=== PATIENT | female | born 1960 | race Caucasian/White ===

== ENCOUNTER 2020-11-29 07:12 | Emergency (ER) | payer OTHER ==
[2020-11-29] MEDS ORDERED: MORPHINE SULFATE 2 MG INJ ONE (07:24)
[2020-11-29] MEDS ORDERED: MORPHINE SULFATE 2 MG INJ IV ONE (07:24)
[2020-11-29] MEDS ORDERED: Zofran 4 MG/2 ML VIAL IV ONE ×2 (07:24→11:46)
[2020-11-29] MEDS ORDERED: Zofran 4 MG/2 ML VIAL ONE ×2 (07:24→11:49)
[2020-11-29 07:32] LABS: BASOPHIL % 0.3 % (0.0-0.4); Basophil (Absolute #) 0.04 (0-0.4); Eosinophil % 1.4 % (0.00-5.0); Eosinophil (Absolute #) 0.19 (0-0.5); Hematocrit 38.6 % (35-47); Lymphocyte (Absolute #) 3.71 (1.0-4.6); Mean Cell Volume 80.8 fl (78-100); Mean Corpuscular Hemoglobin 25.1 pg (26-32); Mean Corpuscular Hgb Concent. 31.1 g/dl (32-36); Mean Platelet Volume 10.3 fl (7.5-11.0); Monocyte (Absolute #) 0.78 (0.0-1.3); Monocytes % 5.7 % (0.0-12.0); Neutrophil % 65.6 % (36.0-66.0); Platelet Count 474 K/mm3 (150-450); Red Blood Count 4.78 M/mm3 (4.1-5.4); Red Cell Distribution Width 16.9 % (11.5-14.0); White Blood Count 13.7 K/mm3 (4.0-10.5)
--- NOTE | 2020-11-29 07:50 | ERPHSYRPT ---
- History of Present Illness Time Seen by Provider: 11/29/20 07:20 Historian: patient Exam Limitations: no limitations Patient Subjective Stated Complaint: pt here for multi cos, she is yelling at staff thrashing and moaning out. she states she was in [facility] for [facility] ncreatitis, and had a bee sting yesterday, and states shes sob, Triage Nursing Assessment: pt alert, resp labored, she is hyperventilating, skin w.d.p, abd soft, co pain to center of abd,no edema, unable to exam pt fully do to her tharshing in bed Physician History: Patient is a 60-year-old female presents for emergency department with complaints of epigastric pain. Patient states she was a patient at [facility] approximately 4 days ago for pancreatitis. Patient states she has been vomiting over the past 2 days. Patient has a sore throat. Patient states she feels as is difficult for her to breathe. Patient concern for possible hi phylaxis that she was stung by a bee yesterday. No chest pain. No diarrhea. No rash. No fever. No trauma. Symptoms are constant. Symptoms are moderate in intensity. No specific worsening improving factors. Patient voices no other complaints or concerns at this time. Timing/Duration: yesterday Activities at Onset: none Quality: aching Abdominal Pain Onset Location: epigastric Pain Radiation: no radiation Severity of Pain-Max: moderate Severity of Pain-Current: mild Modifying Factors: Improves With: nothing Associated Symptoms: nausea, shortness of breath, vomiting, No chest pain, No diarrhea, No fever/chills, No headache, No weakness Previous symptoms: same symptoms as today Allergies/Adverse Reactions: No Known Drug Allergies Allergy (Unverified 11/29/20 07:22) Hx Tetanus, Diphtheria Vaccination/Date Given: No Hx Influenza Vaccination/Date Given: No Hx Pneumococcal Vaccination/Date Given: No Immunizations Up to Date: Yes Travel Risk - International Travel Have you traveled outside of the country in past 3 weeks: No - Coronavirus Screening Are you exhibiting any of the following symptoms?: No Close contact with a COVID-19 positive Pt in past 14-21 Days: No - Vaccine Status Have you recieved a Covid-19 vaccination: Yes Core Measures Abstractor: Shogether - Vaccination Dates Date of 2cond Vaccination (if applicable): ? - Review of Systems Constitutional: No Symptoms, No Fever, No Chills Eyes: No Symptoms Ears, Nose, & Throat: No Symptoms Respiratory: No Symptoms, No Cough, No Dyspnea Cardiac: No Symptoms, No Chest Pain, No Edema, No Syncope Abdominal/Gastrointestinal: No Symptoms, No Abdominal Pain, No Nausea, No Vomiting, No Diarrhea Genitourinary Symptoms: No Symptoms, No Dysuria Musculoskeletal: No Symptoms, No Back Pain, No Neck Pain Skin: No Symptoms, No Rash Neurological: No Symptoms, No Dizziness, No Focal Weakness, No Sensory Changes Psychological: No Symptoms Endocrine: No Symptoms Hematologic/Lymphatic: No Symptoms Immunological/Allergic: No Symptoms All Other Systems: Reviewed and Negative - Past Medical History Pertinent Past Medical History: Yes Cardiac History: High Cholesterol, Hypertension Endocrine Medical History: Diabetes Type II Psycho-Social History: Anxiety, Depression - Past Surgical History Past Surgical History: Yes Musculoskeletal: Orthopedic Surgery Female Surgical History: Hysterectomy Other Surgical History: ankle ,knee - Social History Smoking Status: Former smoker Exposure to second hand smoke: No Drug Use: none Patient Lives Alone: No - Female History Hx Last Menstrual Period: post - Nursing Vital Signs Nursing Vital Signs: Initial Vital Signs Temperature 97.0 F 11/29/20 07:13 Pulse Rate 90 11/29/20 07:13 Respiratory Rate 18 11/29/20 07:13 Blood Pressure 181/96 11/29/20 07:13 O2 Sat by Pulse Oximetry 100 11/29/20 07:13 Pain Scale Pain Intensity 6 - Physical Exam General Appearance: mild distress, alert, other (Patient appears in mild distress. She is yelling at staff. ) Eye Exam: PERRL/EOMI, eyes nml inspection Ears, Nose, Throat Exam: normal ENT inspection, pharynx normal, moist mucous membranes Neck Exam: normal inspection, non-tender, supple, full range of motion Respiratory Exam: normal breath sounds, lungs clear, No respiratory distress Cardiovascular Exam: regular rate/rhythm, normal heart sounds Gastrointestinal/Abdomen Exam: soft, tenderness, other (Epigastric tenderness to palpation.), No mass Back Exam: normal inspection, normal range of motion, No CVA tenderness, No vertebral tenderness Extremity Exam: normal inspection, normal range of motion, pelvis stable Neurologic Exam: alert, oriented x 3, cooperative, normal mood/affect, sensation nml, No motor deficits Skin Exam: normal color, warm, dry Lymphatic Exam: No adenopathy SpO2 Interpretation: normal SpO2: 100 O2 Delivery: Room Air - Course Nursing assessment & vital signs reviewed: Yes EKG Interpreted by Me: RATE (87), Sinus Rhythm (PVC, poor quality EKG due to movement artifact.) - Radiology Exams Chest X-ray Interpretation: Interpreted by me (No acute cardiopulmonary processes seen. Some incidental findings are seen.) C-Spine X-ray Interpretation: Teleradiologist Report (See no evidence of significant airway compromise within the neck or prevertebral soft tissue swelling. There is equivocal evidence of minimal thickening of the epiglottis. However no other worrisome findings are seen. Degenerative changes within the cervical spine as discussed above.) - CT Exams Chest CT Interpretation: Tele-radiologist Report (No CT evidence of pulmonary embolus. Old healed granulomatous disease on the right. There is mild mosaic attenuation of the lung parenchyma at the lung bases. Consider small airway disease or bibasilar air trapping. No acute lung disease is seen. Mild focal atelectasis versus scarring at the posteri) Abdomen/Pelvis CT Interpretation: Tele-radiologist Report (No acute intra-abdominal or pelvic process. Moderate amount of fluid within the upper portion of the stomach and the ascending colon. No significant bowel wall thickening. Scattered colonic diverticulosis. No diverticulitis. Uterus is surgically absent. Radiopaque densities of unclear etiology at th) Ordered Tests: Active Orders 24 hr Category Date Time Status Nib Adjuster STAT Care 11/29/20 07:19 Active EKG-ER Only STAT Care 11/29/20 07:18 Active IV Insertion STAT Care 11/29/20 07:18 Active Pulse Oximetry (ED) STAT Care 11/29/20 07:18 Active ABDOMEN AND PELVIS W CONTRAST [CT] Stat Exams 11/29/20 08:18 Completed CHEST 1 VIEW (PORTABLE) Stat Exams 11/29/20 07:19 Completed CHEST WITH CONTRAST [CT] Stat Exams 11/29/20 08:18 Completed NECK SOFT TISSUE Stat Exams 11/29/20 07:24 Completed ARTERIAL BLOOD GASES Urgent Lab 11/29/20 07:18 Completed CBC W DIFF Stat Lab 11/29/20 07:27 Completed CMP Stat Lab 11/29/20 07:27 Completed D-DIMER QUANTITATIVE Stat Lab 11/29/20 07:27 Completed LIPASE Stat Lab 11/29/20 07:27 Completed Lactic Acid Stat Lab 11/29/20 07:18 Completed Lactic Acid Stat Lab 11/29/20 09:53 Completed NT PRO BNP Stat Lab 11/29/20 07:27 Completed TROPONIN Q3H Lab 11/29/20 07:27 Completed TROPONIN Q3H Lab 11/29/20 10:18 Completed TROPONIN Q3H Lab 11/29/20 13:30 Ordered TROPONIN Q3H Lab 11/29/20 16:30 Ordered TROPONIN Q3H Lab 11/29/20 19:30 Ordered UA W/RFX UR CULTURE Stat Lab 11/29/20 07:19 Ordered Medication Summary Generic Name Dose Route Start Last Admin Trade Name Freq PRN Reason Stop Dose Admin Potassium Chloride 20 meq in 100 mls @ 50 mls/hr 11/29/20 08:30 11/29/20 12:04 Potassium Chloride 20 Meq In Water 100ml IV 11/29/20 12:29 50 mls/hr Q2H RENAE Administration Sodium Chloride 1,000 mls @ 50 mls/hr 11/29/20 08:45 11/29/20 08:41 Sodium Chloride 0.9% 1000 Ml IV 12/29/20 08:44 50 mls/hr .Q20H RENAE Administration Heparin Sodium/Dextrose 25,000 units in 250 mls @ 10 mls/hr 11/29/20 10:00 11/29/20 09:54 Heparin 25,000 Units/D5w 250ml Premix IV 12/29/20 09:59 10 ml/hr .Q24H RENAE 10 mls/hr Administration Discontinued Medications Generic Name Dose Route Start Last Admin Trade Name Freq PRN Reason Stop Dose Admin Aspirin 324 mg 11/29/20 09:29 11/29/20 09:38 Baby Aspirin 81 Mg Chew PO 11/29/20 09:30 324 mg STAT ONE Administration Aspirin Confirm 11/29/20 09:36 Baby Aspirin 81 Mg Chew Administered 11/29/20 09:37 Dose 324 mg .ROUTE .STK-MED ONE Heparin Sodium (Beef Lung) Confirm 11/29/20 09:46 Heparin 5000 Units/0.5 Ml (High Risk Med) Administered 11/29/20 09:47 Dose 5,000 unit .ROUTE .STK-MED ONE Heparin Sodium (Beef Lung) 5,000 unit 11/29/20 09:51 11/29/20 09:54 Heparin 5000 Units/0.5 Ml (High Risk Med) IV 11/29/20 09:52 5,000 unit STAT ONE Administration Hydromorphone HCl 0.5 mg 11/29/20 08:00 11/29/20 08:09 Hydromorphone 1 Mg/Ml Injection IV 11/29/20 08:01 0.5 mg STAT ONE Administration Hydromorphone HCl Confirm 11/29/20 08:06 Hydromorphone 1 Mg/Ml Injection Administered 11/29/20 08:07 Dose 1 mg .ROUTE .STK-MED ONE Hydromorphone HCl 0.5 mg 11/29/20 11:30 11/29/20 11:53 Hydromorphone 1 Mg/Ml Injection IV 11/29/20 11:31 0.5 mg STAT ONE Administration Hydromorphone HCl Confirm 11/29/20 11:48 Hydromorphone 1 Mg/Ml Injection Administered 11/29/20 11:49 Dose 1 mg .ROUTE .STK-MED ONE Sodium Chloride Confirm 11/29/20 08:34 Sodium Chloride 0.9% 1000 Ml Administered 11/29/20 08:35 Dose 1,000 mls @ ud .ROUTE .STK-MED ONE Heparin Sodium/Dextrose Confirm 11/29/20 09:36 Heparin 25,000 Units/D5w 250ml Premix Administered 11/29/20 09:37 Dose 25,000 units in 250 mls @ ud IV .STK-MED ONE Morphine Sulfate 2 mg 11/29/20 07:24 11/29/20 07:41 Morphine Sulfate 2 Mg Inj IV 11/29/20 07:25 2 mg STAT ONE Administration Morphine Sulfate Confirm 11/29/20 07:24 Morphine Sulfate 2 Mg Inj Administered 11/29/20 07:25 Dose 2 mg .ROUTE .STK-MED ONE Ondansetron HCl 4 mg 11/29/20 07:24 11/29/20 07:41 Zofran 4 Mg/2 Ml Vial IV 11/29/20 07:25 4 mg STAT ONE Administration Ondansetron HCl Confirm 11/29/20 07:24 Zofran 4 Mg/2 Ml Vial Administered 11/29/20 07:25 Dose 4 mg .ROUTE .STK-MED ONE Ondansetron HCl 4 mg 11/29/20 11:46 11/29/20 11:53 Zofran 4 Mg/2 Ml Vial IV 11/29/20 11:47 4 mg STAT ONE Administration Ondansetron HCl Confirm 11/29/20 11:49 Zofran 4 Mg/2 Ml Vial Administered 11/29/20 11:50 Dose 4 mg .ROUTE .STK-MED ONE Pantoprazole Sodium 40 mg 11/29/20 08:01 11/29/20 08:09 Protonix 40 Mg Iv IV 11/29/20 08:02 40 mg STAT ONE Administration Pantoprazole Sodium Confirm 11/29/20 08:06 Protonix 40 Mg Iv Administered 11/29/20 08:07 Dose 40 mg IV .STK-MED ONE Lab/Rad Data: Laboratory Result Diagrams 11/29/20 07:27 11/29/20 07:27 Laboratory Results 11/29/20 11/29/20 11/29/20 Range/Units 10:18 09:53 07:27 WBC (4.0-10.5) K/mm3 RBC (4.1-5.4) M/mm3 Hgb (12.0-16.0) gm/dl Hct (35-47) % MCV (78-100) fl MCH (26-32) pg MCHC (32-36) g/dl RDW (11.5-14.0) % Plt Count (150-450) K/mm3 MPV (7.5-11.0) fl Gran % (36.0-66.0) % Eos # (Auto) (0-0.5) Absolute Lymphs (auto) (1.0-4.6) Absolute Monos (auto) (0.0-1.3) Lymphocytes % (24.0-44.0) % Monocytes % (0.0-12.0) % Eosinophils % (0.00-5.0) % Basophils % (0.0-0.4) % Absolute Granulocytes (1.4-6.9) Basophils # (0-0.4) D-Dimer (215-500) ng/mL Puncture Site pCO2 (35-45) mmHg pO2 (75-100) mmHg Base Excess (-2.0-2.0) O2 Saturation (94-100) g/dF ABG pH (7.35-7.45) ABG HCO3 (22-28) ABG O2 Sat (Measured) (95-100) % Joseph Test A-a Gradient a/A Ratio Hemoglobin Carboxyhemoglobin (0.0-6.9) % THgb Methemoglobin (1.4-1.5) % Potassium (3.5-5.1) Temperature C POC O2 Flow Rate % Sodium (137-145) mmol/L Chloride (98-107) mmol/L Carbon Dioxide (22-30) mmol/L Anion Gap (5-15) MEQ/L BUN (7-17) mg/dL Creatinine (0.52-1.04) mg/dL Estimated GFR ML/MIN Glucose (74-106) mg/dL Lactic Acid 0.7 (0.4-2.0) Calcium (8.4-10.2) mg/dL Total Bilirubin (0.2-1.3) mg/dL AST (14-36) U/L ALT (0-35) U/L Alkaline Phosphatase (38-126) U/L Troponin I 0.337 H* 0.434 H* (0.000-0.034) ng/mL NT-Pro-B Natriuret Pep (0-900) pg/mL Serum Total Protein (6.3-8.2) g/dL Albumin (3.5-5.0) g/dL Lipase (23-300) U/L 11/29/20 11/29/20 11/29/20 Range/Units 07:27 07:27 07:27 WBC 13.7 H (4.0-10.5) K/mm3 RBC 4.78 (4.1-5.4) M/mm3 Hgb 12.0 (12.0-16.0) gm/dl Hct 38.6 (35-47) % MCV 80.8 (78-100) fl MCH 25.1 L (26-32) pg MCHC 31.1 L (32-36) g/dl RDW 16.9 H (11.5-14.0) % Plt Count 474 H (150-450) K/mm3 MPV 10.3 (7.5-11.0) fl Gran % 65.6 (36.0-66.0) % Eos # (Auto) 0.19 (0-0.5) Absolute Lymphs (auto) 3.71 (1.0-4.6) Absolute Monos (auto) 0.78 (0.0-1.3) Lymphocytes % 27.0 (24.0-44.0) % Monocytes % 5.7 (0.0-12.0) % Eosinophils % 1.4 (0.00-5.0) % Basophils % 0.3 (0.0-0.4) % Absolute Granulocytes 9.00 H (1.4-6.9) Basophils # 0.04 (0-0.4) D-Dimer 4569 H* (215-500) ng/mL Puncture Site pCO2 (35-45) mmHg pO2 (75-100) mmHg Base Excess (-2.0-2.0) O2 Saturation (94-100) g/dF ABG pH (7.35-7.45) ABG HCO3 (22-28) ABG O2 Sat (Measured) (95-100) % Joseph Test A-a Gradient a/A Ratio Hemoglobin Carboxyhemoglobin (0.0-6.9) % THgb Methemoglobin (1.4-1.5) % Potassium 3.0 L* (3.5-5.1) Temperature C POC O2 Flow Rate % Sodium 139 (137-145) mmol/L Chloride 102 (98-107) mmol/L Carbon Dioxide 25 (22-30) mmol/L Anion Gap 15.7 H (5-15) MEQ/L BUN 10 (7-17) mg/dL Creatinine 0.65 (0.52-1.04) mg/dL Estimated GFR > 60.0 ML/MIN Glucose 148 H (74-106) mg/dL Lactic Acid (0.4-2.0) Calcium 9.5 (8.4-10.2) mg/dL Total Bilirubin 0.40 (0.2-1.3) mg/dL AST 29 (14-36) U/L ALT 25 (0-35) U/L Alkaline Phosphatase 68 (38-126) U/L Troponin I (0.000-0.034) ng/mL NT-Pro-B Natriuret Pep 5660 H (0-900) pg/mL Serum Total Protein 7.3 (6.3-8.2) g/dL Albumin 4.1 (3.5-5.0) g/dL Lipase 564 H (23-300) U/L 11/29/20 11/29/20 Range/Units 07:18 07:18 WBC (4.0-10.5) K/mm3 RBC (4.1-5.4) M/mm3 Hgb (12.0-16.0) gm/dl Hct (35-47) % MCV (78-100) fl MCH (26-32) pg MCHC (32-36) g/dl RDW (11.5-14.0) % Plt Count (150-450) K/mm3 MPV (7.5-11.0) fl Gran % (36.0-66.0) % Eos # (Auto) (0-0.5) Absolute Lymphs (auto) (1.0-4.6) Absolute Monos (auto) (0.0-1.3) Lymphocytes % (24.0-44.0) % Monocytes % (0.0-12.0) % Eosinophils % (0.00-5.0) % Basophils % (0.0-0.4) % Absolute Granulocytes (1.4-6.9) Basophils # (0-0.4) D-Dimer (215-500) ng/mL Puncture Site LEFT RADIAL pCO2 24 L (35-45) mmHg pO2 101 H (75-100) mmHg Base Excess 4.0 H (-2.0-2.0) O2 Saturation 96.9 (94-100) g/dF ABG pH 7.61 H* (7.35-7.45) ABG HCO3 24.1 (22-28) ABG O2 Sat (Measured) 99.5 (95-100) % Joseph Test Yes A-a Gradient 19 a/A Ratio 0.84 Hemoglobin 12.0 Carboxyhemoglobin 1.6 (0.0-6.9) % THgb Methemoglobin 1.0 L (1.4-1.5) % Potassium 2.9 L* (3.5-5.1) Temperature 37.0 C POC O2 Flow Rate 21 % Sodium (137-145) mmol/L Chloride (98-107) mmol/L Carbon Dioxide (22-30) mmol/L Anion Gap (5-15) MEQ/L BUN (7-17) mg/dL Creatinine (0.52-1.04) mg/dL Estimated GFR ML/MIN Glucose (74-106) mg/dL Lactic Acid 2.3 H (0.4-2.0) Calcium (8.4-10.2) mg/dL Total Bilirubin (0.2-1.3) mg/dL AST (14-36) U/L ALT (0-35) U/L Alkaline Phosphatase (38-126) U/L Troponin I (0.000-0.034) ng/mL NT-Pro-B Natriuret Pep (0-900) pg/mL Serum Total Protein (6.3-8.2) g/dL Albumin (3.5-5.0) g/dL Lipase (23-300) U/L - Progress Progress: improved Progress Note: Chest x-ray negative for acute pathology. Initial EKG was of poor quality due to artifact likely from motion. Initial troponin elevated at 0.4. Repeat EKG concerning for ischemic changes. We called [facility] to have the environmental remediation consultant review the EKG. They advised us to call the [facility]. EKG faxed. 11/29/20 09:09 11/29/20 09:[address] Magallanes environmental remediation consultant at approximately 9:18 AM. He does not think there is a STEMI based on the EKG and patient's presenting symptomology. However he advised a stat repeat EKG. He also advised starting a heparin drip with a bolus. We will also administer aspirin. Patient to be transferred to [facility]. Dr. Magallanes's partner will be notified. Patient to be admitted to hospitalist. 11/29/20 10:19 We called [facility] and declined due to bed availability. We called [facility]. Case discussed with Dr. Valiente who accepts transfer. We are currently awaiting return call for bed assignment. 11/29/20 10:47 Troponin number two 0.337. There is an improvement in patient's troponin. Counseled pt/family regarding: lab results, diagnosis, rad results - Departure Departure Disposition: Transfer Clinical Impression: Levoscoliosis, NSTEMI (non-ST elevated myocardial infarction), Epigastric pain, Hypokalemia, Leukocytosis, Thrombocytosis, Elevated d-dimer, Lactic acidosis, Elevated brain natriuretic peptide (BNP) level, Pancreatitis, Elevated lipase, Arthritis of spine, Lung granuloma, Spondylosis, Diverticulosis, Dextroscoliosis, Supraumbilical hernia Condition: Stable Critical Care Time: No Referrals: YELENA FREED MD [Primary Care Provider] -
[2020-11-29 07:51] LABS: A-aADO2 19; ARTERIAL BLD GAS O2 SATURATION 99.5 % (95-100); ARTERIAL BLOOD GAS FIO2 21 %; ARTERIAL BLOOD GAS PCO2 24 mmHg (35-45); ARTERIAL BLOOD GAS PO2 101 mmHg (75-100); CARBOXYHEMOGLOBIN 1.6 % THgb (0.0-6.9); HCO3- 24.1 (22-28); HGB O2 SAT 96.9 g/dF (94-100)
[2020-11-29 07:52] LABS: ABG POTASSIUM 2.9 (3.5-5.1); ABG SITE LEFT RADIAL; ALLEN TEST OK? Yes; ARTERIAL BLOOD GAS pH 7.61 (7.35-7.45)
[2020-11-29] MEDS ORDERED: Hydromorphone 1 mg/ml Injection IV ONE ×2 (08:00→11:30)
[2020-11-29] MEDS ORDERED: PROTONIX 40 MG IV IV ONE ×2 (08:01→08:06)
[2020-11-29 08:03] LABS: ALBUMIN 4.1 g/dL (3.5-5.0); ALKALINE PHOSPHATASE 68 U/L (38-126); ANION GAP 15.7 MEQ/L (5-15); BLOOD UREA NITROGEN 10 mg/dL (7-17); CHLORIDE 102 mmol/L (98-107); Calcium 9.5 mg/dL (8.4-10.2); Carbon Dioxide 25 mmol/L (22-30); Creatinine 1 0.65 mg/dL (0.52-1.04); EST GLOMERULAR FILTRATION RATE > 60.0 ML/MIN; Glucose 148 mg/dL (74-106); LIPASE 564 U/L (23-300); NT PRO BNP 5660 pg/mL (0-900); SGOT/AST 29 U/L (14-36); SGPT/ALT 25 U/L (0-35); SODIUM 139 mmol/L (137-145); Total Protein 7.3 g/dL (6.3-8.2)
[2020-11-29] MEDS ORDERED: Hydromorphone 1 mg/ml Injection ONE ×2 (08:06→11:48)
[2020-11-29] MEDS ORDERED: Sodium Chloride 0.9% 1000 ML 1,000 ML ONE (08:34)
[2020-11-29] MEDS ORDERED: POTASSIUM CHLORIDE 20 mEq IN WATER 100ML 100 ML IV ONE ×2 (08:34→12:02)
[2020-11-29] MEDS: POTASSIUM CHLORIDE 20 mEq IN WATER 100ML 20 MEQ/100 ML BAG IV SCH ×2 (08:41→12:04)
--- NOTE | 2020-11-29 08:42 | XRAY ---
Exam: Upright 2 view soft tissue neck series from 11/29/2020. Comparison: None. Indication: Airway compromise? Findings: Upright AP and lateral radiographs of the soft tissues of the neck reveal a metallic necklace encircling the base of the patient's neck and bilateral metallic earrings. The visualized posterior oropharynx and nasopharynx are essentially unremarkable. There is no over distention of the hypopharynx. There is equivocal evidence of slight prominence of the epiglottis, although no significant aryepiglottic thickening is seen. The thyroid cartilage is partially calcified. I do not see any significant compromise upon the cervical airway. The prevertebral soft tissues appear unremarkable. There is evidence of moderate degenerative disc disease at C3-C4 with about 2.5 mm retrolisthesis of C3 with respect to C4. This is likely due to degenerative change. I also see evidence of mild to moderate degenerative disc disease at C5-C6. The mouth is edentulous. Some mild scattered degenerative changes are seen within the uncovertebral joints and apophyseal joints on the AP image. No cervical ribs are seen. Impression: 1. I see no evidence of significant airway compromise within the neck or prevertebral soft tissue swelling. 2. There is equivocal evidence of minimal thickening of the epiglottis. However, no other worrisome findings are seen. 3. Degenerative changes within the cervical spine, as discussed above.
[2020-11-29] MEDS ORDERED: Sodium Chloride 0.9% 1000 ML 1,000 ML IV SCH (08:45)
--- NOTE | 2020-11-29 08:46 | XRAY ---
Exam: AP portable chest film from 11/29/2020. Comparison: None. Indication: 60-year-old female with shortness of breath. Findings: A thin metallic necklace encircles the base of the patient's neck. The heart size is normal. A small epicardial fat-pad is seen at the left cardiophrenic angle. Mild tortuosity of the descending thoracic aorta is seen. The patient is rotated slightly toward the right. The remainder of the trey and mediastinal structures appears unremarkable. The lungs are adequately inflated. No air space infiltrates, vascular congestion, pneumothorax, or pleural fluid is seen. There is a suggestion of a thin strand of plate atelectasis or scarring at the lateral left lung base. Thoracic spondylosis and mild lower mid thoracic levoscoliosis are seen. I suspect some upper lumbar rotary dextroscoliosis at the inferior margin of the film as well. Impression: 1. No acute cardiopulmonary process is seen. Some incidental findings are seen, as discussed above.
[2020-11-29 09:10] VITALS: O2SAT 100
[2020-11-29] MEDS ORDERED: BABY ASPIRIN 81 MG CHEW PO ONE (09:29)
--- NOTE | 2020-11-29 09:35 | XRAY ---
Exam: CT of the chest with IV contrast, per PE protocol from 11/29/2020. CTDI: 17.83 mGy Comparison: AP portable chest film from 11/29/2020. Indication: 60-year-old female with elevated d-dimer, lower chest pain and mid upper abdominal pain; nausea/vomiting; shortness of breath. Technique: Post-IV contrast axial images were obtained through the chest during automated injection of 80 cc of Isovue-370 contrast material. Reconstructed coronal and sagittal images were created and reviewed. Findings: The pulmonary arteries enhance well revealing no filling defects to suggest clot/emboli. There is no evidence of thoracic aortic aneurysm or dissection. The heart size is within normal limits and reveals no pericardial effusion. A small nonspecific distal right paratracheal lymph node is seen. There are also a couple tiny nonspecific lymph nodes within the AP window on the left. No pathological thoracic lymphadenopathy is seen. A tiny calcification overlies the right hilum. The visualized axilla appear normal. The distal trachea and major central branching bronchi appear open on the lung window images. A calcified granuloma is seen at the central right lung base. I see no dense air space infiltrates or lobar consolidations. Minimal focal atelectasis or scarring is seen at the posterior medial right lung base. There is a subtle mosaic attenuation of the lung parenchyma at the lung bases. Consider small airways disease or air-trapping. No pneumothorax or pleural fluid is seen. No suspicious soft tissue lung nodules are seen. The upper abdomen will be discussed with a CT of the abdomen/pelvis report. Mild thoracic spondylosis is seen. Some small Schmorl's nodes are seen within scattered thoracic vertebral endplates. There is minimal deformity of the upper portion of the body of the sternum on the sagittal images, which could be due to old healed trauma. For example, see sagittal image #100 of series 603. Impression: 1. I see no CT evidence of acute pulmonary embolus. 2. Minimal old healed granulomatous disease on the right. 3. There is a mild mosaic attenuation of the lung parenchyma at the lung bases. Consider small airways disease or mild bibasilar air trapping. No other acute lung disease is seen. 4. Minimal focal atelectasis versus scarring at the posterior medial right lung base.
[2020-11-29] MEDS ORDERED: BABY ASPIRIN 81 MG CHEW ONE (09:36)
[2020-11-29] MEDS ORDERED: Heparin 25,000 units/D5W 250ML PREMIX 25,000 UNITS/250 ML BAG IV ONE (09:36)
[2020-11-29] MEDS ORDERED: Heparin 5000 UNITS/0.5 ML (HIGH RISK MED) ONE (09:46)
[2020-11-29] MEDS ORDERED: Heparin 5000 UNITS/0.5 ML (HIGH RISK MED) IV ONE (09:51)
--- NOTE | 2020-11-29 09:56 | XRAY ---
Exam: CT of the abdomen and pelvis with IV contrast from 11/29/2020. CTDI: 16.04 mGy Comparison: None. Indication: 60-year-old female with mid upper abdominal pain; nausea/vomiting; shortness of breath. The patient has a surgical history of prior hysterectomy. Technique: Post-IV contrast axial images were obtained through the abdomen and pelvis during and following automated injection of 80 cc of Isovue-370 contrast material. Reconstructed coronal and sagittal images were created and reviewed. Findings: The liver and spleen appear of unremarkable size and uniform attenuation without mass. No intrahepatic or extrahepatic biliary duct distention is seen. The gallbladder is partially distended and reveals no dense calcifications within it. A mild amount of fluid density is seen within the stomach lumen. The pancreas reveals no mass, pancreatic duct distention, or peripancreatic inflammatory changes. The adrenal glands appear unremarkable. Both kidneys are visualized and reveal no solid mass, hydronephrosis, or renal calculi. The kidneys function bilaterally on delay images. There is a mild to moderate extrarenal pelvis on the right and a minimal extrarenal pelvis on the left. Both ureters are partially visualized. No ureterolith is seen. Some atherosclerotic vascular calcification is seen within the abdominal aorta. No abdominal aortic aneurysm or abnormal retroperitoneal lymphadenopathy is seen. There are a few small shotty periaortic lymph nodes seen. No bowel containing ventral hernia or free intraperitoneal air is seen. On midline sagittal image #[id number], there appears to be a small fatty supraumbilical hernia. The bowel appears nonobstructed. Some fluid is seen within the ascending colon. The appendix appears unremarkable. There is some mild scattered colonic diverticulosis without evidence of diverticulitis. The uterus is surgically absent. No enlarged pelvic lymph nodes are seen. The urinary bladder is only partially distended. Some radiopaque densities are seen adjacent to the inferior margin of the urinary bladder near the midline. These can be seen in the CT material control manager images as well. These are not related to the rectum. Correlate with prior surgery. The urinary bladder wall is not thickened. There is no free intraperitoneal fluid. The skeleton reveals mild mid lumbar rotary dextroscoliosis and moderate multilevel degenerative disc disease, primarily at the lower 3 lumbar interspace levels. I also note moderate to marked bilateral L5-S1 facet joint arthropathy and mild L4-L5 facet joint arthropathy. Impression: 1. I see no acute intra-abdominal or pelvic process. The bowel appears nonobstructed. There is a moderate amount of fluid within the upper portion of the stomach and the ascending colon. No significant bowel wall thickening is seen. 2. I do note mild scattered colonic diverticulosis without evidence of acute diverticulitis. The appendix is normal. 3. The uterus is surgically absent. 4. Adjacent to the inferior margin of the urinary bladder in the midline, I see some right radiopaque densities of unclear etiology. These can easily be seen on the CT material control manager images as well. Correlate clinically regarding prior surgery. These measure up to +[phone] Hounsfield units suggesting that they are denser than calcium. 5. Skeletal findings, as discussed above.
[2020-11-29] MEDS ORDERED: Heparin 25,000 units/D5W 250ML PREMIX 25,000 UNITS/250 ML BAG IV SCH (10:00)
[2020-11-29 12:21] VITALS: BP 119/75; PULSE 97
== END 2020-11-29 12:46 | disposition home or self-care (01) ==
LOC: ED 07:12
DX: M41.80 Other forms of scoliosis, site unspecified (principal); I21.4 Non-ST elevation (NSTEMI) myocardial infarction; R10.13 Epigastric pain; D72.829 Elevated white blood cell count, unspecified; D47.3 Essential (hemorrhagic) thrombocythemia; R79.89 Other specified abnormal findings of blood chemistry; E87.2 Acidosis; K85.90 Acute pancreatitis without necrosis or infection, unspecified; M47.9 Spondylosis, unspecified; J84.10 Pulmonary fibrosis, unspecified; K57.90 Diverticulosis of intestine, part unspecified, without perforation or abscess without bleeding; K42.9 Umbilical hernia without obstruction or gangrene; E87.6 Hypokalemia
CPT/HCPCS: 36000; 36415; 36600; 70360; 71045; 71260; 74177; 80053; 82375; 82803; 83605; 83690; 83880; 84484; 85025; 85379; 93005; 93041; 94760; 96360; 96361; 96365; 96367; 96374; 96375; 96376; 99285; J1170; J1644; J2270; J2405; J3480; A9270-GY

== ENCOUNTER 2021-02-12 13:20 | Observation (INO) | payer MEDICAID, OTHER ==
[2021-02-12] MEDS: Sodium Chloride 0.9% 1000 ML 1,000 ML IV SCH ×3 (14:00→23:25)
[2021-02-12 14:05] LABS: BASOPHIL % 0.3 % (0.0-0.4); Basophil (Absolute #) 0.04 (0-0.4); Eosinophil % 0.3 % (0.00-5.0); Eosinophil (Absolute #) 0.04 (0-0.5); Hematocrit 40.2 % (35-47); Mean Cell Volume 79.6 fl (78-100); Mean Corpuscular Hemoglobin 25.7 pg (26-32); Mean Corpuscular Hgb Concent. 32.3 g/dl (32-36); Mean Platelet Volume 9.7 fl (7.5-11.0); Neutrophil % 79.4 % (36.0-66.0); Platelet Count 407 K/mm3 (150-450); Red Blood Count 5.05 M/mm3 (4.1-5.4); Red Cell Distribution Width 15.1 % (11.5-14.0)
[2021-02-12 14:30] LABS: ALBUMIN 4.3 g/dL (3.5-5.0); ALKALINE PHOSPHATASE 75 U/L (38-126); ANION GAP 14.4 MEQ/L (5-15); BLOOD UREA NITROGEN 26 mg/dL (7-17); CHLORIDE 98 mmol/L (98-107); Calcium 9.6 mg/dL (8.4-10.2); Carbon Dioxide 30 mmol/L (22-30); Creatinine 1 0.99 mg/dL (0.52-1.04); EST GLOMERULAR FILTRATION RATE > 60.0 ML/MIN; Glucose 117 mg/dL (74-106); MAGNESIUM 1.8 mg/dL (1.6-2.3); NT PRO BNP 255 pg/mL (0-900); SGOT/AST 68 U/L (14-36); SGPT/ALT 42 U/L (0-35); SODIUM 139 mmol/L (137-145); TROPONIN 0.012 ng/mL (0.000-0.034); Total Protein 7.8 g/dL (6.3-8.2)
[2021-02-12 14:32] LABS: Potassium 2.9 mmol/L (3.5-5.1)
[2021-02-12] MEDS ORDERED: K-LYTE 25 MEQ PO ONE (14:47)
[2021-02-12] MEDS ORDERED: K-LYTE 25 MEQ ONE (14:52)
[2021-02-12] MEDS: POTASSIUM CHLORIDE 20 mEq IN WATER 100ML 20 MEQ/100 ML BAG IV SCH ×2 (14:54→21:40)
[2021-02-12] MEDS ORDERED: SUBLIMAZE 100 MCG/2 ML IV ONE (15:17)
[2021-02-12] MEDS ORDERED: Zofran 4 MG/2 ML VIAL IV ONE (15:17)
[2021-02-12] MEDS ORDERED: SUBLIMAZE 100 MCG/2 ML ONE (15:46)
[2021-02-12] MEDS ORDERED: Zofran 4 MG/2 ML VIAL ONE (15:47)
--- NOTE | 2021-02-12 16:08 | ERPHSYRPT ---
- History of Present Illness Time Seen by Provider: 02/12/21 13:25 Source: patient, family Exam Limitations: no limitations Patient Subjective Stated Complaint: PT states "This morning around 1 am I passed out in the bathroom twice and I hit my head and face. My neck and back hurts too." Triage Nursing Assessment: Pt presented alert and oriented X 3, skin pwd Pt ambulates with a slow gait, pt has hematoma noted to right forehead, nose swollen, pt resting comfortably on the bed Physician History: 60 years old female with a history of hypertension, hyperlipidemia, diabetes mellitus, anxiety, depression presented in the ER with chief complaint of syncopal episode and fall this morning. Patient reports she was in the bathroom when she had a syncopal episode and hit her head, got up and tried to walk and had another episode, fell backward hit her head and back. She was able to get up and ambulate. Patient is complaining of right frontal headache/swelling, neck and back pain. Denies any numbness tingling or focal weakness. Denies any chest pain palpitations or shortness of breath before or after the syncopal episodes. No nausea or vomiting reported. Timing/Duration: today, sudden, improved Severity: moderate Character of Deficits: none Deficits: no difficulties Baseline/Normal Cognition: alert oriented x 3 Current Cognition: alert oriented x 3 Baseline Gait: walks w/o assistance Associated Symptoms: fatigue, loss of consciousness, headache, No confusion, No fever, No chills, No nausea, No vomiting, No weakness, No insomnia, No numbness/tingling in legs/feet, No paresthesia, No ringing in ears, No seizures, No slurred speech, No vision changes, No chest pain Allergies/Adverse Reactions: No Known Drug Allergies Allergy (Verified 02/12/21 13:38) Home Medications: Atorvastatin Calcium [Lipitor] 80 mg PO DAILY 02/12/21 [History] Escitalopram Oxalate 10 mg [Lexapro 10 MG] 10 mg PO DAILY 02/12/21 [History] Gabapentin [Neurontin] 400 mg PO DAILY 02/12/21 [History] Metformin HCl 500 mg PO DAILY 02/12/21 [History] Metoprolol Succinate 100 mg [Toprol Xl 100 MG] 50 mg PO DAILY 02/12/21 [History] Pramipexole Di-HCl [Mirapex] 0.5 mg PO DAILY 02/12/21 [History] clonazePAM [Klonopin] 1 mg PO BID 02/12/21 [History] Hx Tetanus, Diphtheria Vaccination/Date Given: No Hx Influenza Vaccination/Date Given: Yes Hx Pneumococcal Vaccination/Date Given: No Immunizations Up to Date: Yes Travel Risk - International Travel Have you traveled outside of the country in past 3 weeks: No - Coronavirus Screening Are you exhibiting any of the following symptoms?: No Close contact with a COVID-19 positive Pt in past 14-21 Days: No - Vaccine Status Have you recieved a Covid-19 vaccination: Yes Maintenance Machine Repairer: [employer] - Vaccination Dates Date of 2cond Vaccination (if applicable): 07/26/2020 - Review of Systems Constitutional: No Symptoms Eyes: No Symptoms Ears, Nose, & Throat: No Symptoms Respiratory: No Symptoms Cardiac: No Symptoms Abdominal/Gastrointestinal: No Symptoms Genitourinary Symptoms: No Symptoms Musculoskeletal: Back Pain, Neck Pain, Fall, Injury Skin: No Symptoms Neurological: Headache Psychological: No Symptoms Endocrine: No Symptoms Hematologic/Lymphatic: No Symptoms Immunological/Allergic: No Symptoms - Past Medical History Pertinent Past Medical History: Yes Cardiac History: High Cholesterol, Hypertension Endocrine Medical History: Diabetes Type II Psycho-Social History: Anxiety, Depression - Past Surgical History Past Surgical History: Yes Musculoskeletal: Orthopedic Surgery Female Surgical History: Hysterectomy Other Surgical History: ankle ,knee - Social History Smoking Status: Current some day smoker How long have you smoked: years Exposure to second hand smoke: Yes Drug Use: none Patient Lives Alone: Yes - Female History Hx Now: No - Nursing Vital Signs Nursing Vital Signs: Initial Vital Signs Temperature 97.2 F 02/12/21 13:28 Pulse Rate 74 02/12/21 13:28 Respiratory Rate 20 02/12/21 13:28 Blood Pressure 188/106 02/12/21 13:28 O2 Sat by Pulse Oximetry 99 02/12/21 13:28 Pain Scale Pain Intensity 4 - [place] Coma Scale Best Eye Response ([place]): (4) open spontaneously Best Verbal Response ([place]): (5) oriented Best Motor Response ([place]): (6) obeys commands [place] Total: 15 - Physical Exam General Appearance: no apparent distress, alert, other (Right forehead 4 x 2 cm hematoma. No step in deformity. Minimal forehead tenderness.) Eye Exam: bilateral eye: normal inspection, PERRL, EOMI Ears, Nose, Throat Exam: normal ENT inspection, TMs normal, pharynx normal, moist mucous membranes, other (Nasal abrasion at bridge with minimal tenderness. No crepitus.) Neck Exam: normal inspection, supple, other (C-collar placed. Minimal posterior cervical tenderness) Respiratory: normal breath sounds, lungs clear, No chest tenderness Cardiovascular: regular rate/rhythm, normal heart sounds Gastrointestinal: soft, normal bowel sounds, No tenderness Back Exam: normal inspection, CVA tenderness, vertebral tenderness (Lower lumbar), other (Lumbar/thoracic) SpO2: 98 - Course EKG Interpreted by Me: RATE (69), Sinus Rhythm, NORMAL AXIS, NORMAL INTERVALS, Non-specific ST Changes Ordered Tests: Active Orders 24 hr Category Date Time Status Bedrest ROUTINE Activity 02/12/21 19:40 Active Up With Assistance ROUTINE Activity 02/12/21 19:40 Active Code Status Order ROUTINE Care 02/12/21 19:40 Active EKG-ER Only STAT Care 02/12/21 13:46 Completed Fall Protocol Q1H Care 02/12/21 19:40 Active IV Care Q6H Care 02/12/21 19:40 Active IV Insertion STAT Care 02/12/21 13:[address] in Observation ROUTINE Care 02/12/21 19:40 Active Gareth Hose, Apply ROUTINE Care 02/12/21 19:40 Active Weight,Daily 0600 Care 02/12/21 19:40 Active CERVICAL SPINE WO CONTRAST [CT] Stat Exams 02/12/21 13:45 Completed CHEST WITHOUT CONTRAST [CT] Stat Exams 02/12/21 13:45 Completed FACIAL BONES WO CONTRAST [CT] Stat Exams 02/12/21 13:45 Completed HEAD WITHOUT CONTRAST [CT] Stat Exams 02/12/21 13:46 Completed LUMBAR SPINE W/O [CT] Stat Exams 02/12/21 15:09 Completed CBC W DIFF AM.LAB Lab 02/13/21 04:00 Ordered CBC W DIFF Stat Lab 02/12/21 14:00 Completed CMP AM.LAB Lab 02/13/21 04:00 Ordered CMP Routine Lab 02/12/21 14:00 Completed MAGNESIUM Routine Lab 02/12/21 14:00 Completed NT PRO BNP Routine Lab 02/12/21 14:00 Completed TROPONIN Q3H Lab 02/12/21 14:00 Completed TROPONIN Q3H Lab 02/12/21 17:18 Completed TROPONIN Q3H Lab 02/12/21 20:05 Received TROPONIN Q3H Lab 02/12/21 23:00 Ordered TROPONIN Q3H Lab 02/13/21 02:00 Ordered Transfer Order Routine Transfer 02/12/21 Completed Medication Summary Generic Name Dose Route Start Last Admin Trade Name Freq PRN Reason Stop Dose Admin Acetaminophen 650 mg 02/12/21 19:40 Acetaminophen 325 Mg Tablet PO 03/14/21 19:39 Q4H PRN PRN PAIN AND/OR FEVER Hydrocodone Bitart/Acetaminophen 1 tab 02/12/21 21:22 02/12/21 21:40 Hydrocodone/Apap 5/325 Mg Tablet PO 02/17/21 21:21 1 tab Q4H PRN PRN Administration PAIN Albuterol/Ipratropium 3 ml 02/12/21 20:49 Ipratropium/Albuterol Sulfate 3 Ml Ampul.Neb IH 02/18/21 20:49 TID PRN SHORTNESS OF BREATH/WHEEZING Clonazepam 1 mg 02/12/21 21:23 02/12/21 21:38 Clonazepam 0.5 Mg Tablet PO 02/12/21 21:24 1 mg ONCE ONE Administration Escitalopram Oxalate 10 mg 02/12/21 21:24 02/12/21 21:39 Escitalopram Oxalate 10 Mg Tablet PO 02/12/21 21:25 10 mg ONCE ONE Administration Sodium Chloride 1,000 mls @ 100 mls/hr 02/12/21 14:00 02/12/21 14:00 Sodium Chloride 0.9% 1000 Ml IV 03/14/21 13:59 100 mls/hr .Q10H RENAE Administration Potassium Chloride 20 meq in 100 mls @ 50 mls/hr 02/12/21 15:00 02/12/21 21:40 Potassium Chloride 20 Meq In Water 100ml IV 02/12/21 18:59 50 mls/hr Q2H RENAE Administration Sodium Chloride 1,000 mls @ 100 mls/hr 02/12/21 19:40 Sodium Chloride 0.9% 1000 Ml IV 03/14/21 19:39 .Q10H RENAE Ondansetron HCl 4 mg 02/12/21 19:40 Ondansetron Hcl 4 Mg/2 Ml Vial IV 03/14/21 19:39 Q6H PRN PRN NAUSEA/VOMITING Pantoprazole Sodium 40 mg 02/13/21 10:00 Pantoprazole 40 Mg Vial IV 03/15/21 09:59 Q24H10 [facility] Simvastatin 40 mg 02/12/21 21:28 02/12/21 21:39 Simvastatin 20 Mg Tablet PO 02/12/21 21:29 40 mg ONCE ONE Administration Discontinued Medications Generic Name Dose Route Start Last Admin Trade Name Freq PRN Reason Stop Dose Admin Albuterol/Ipratropium 3 ml 02/12/21 19:40 Ipratropium/Albuterol Sulfate 3 Ml Ampul.Neb IH 03/14/21 19:39 Q4HRT [facility] Clonazepam Confirm 02/12/21 21:32 Clonazepam 2 Mg Tablet Administered 02/12/21 21:33 Dose 2 mg .ROUTE .STK-MED ONE Fentanyl Citrate 50 mcg 02/12/21 15:17 02/12/21 15:48 Fentanyl Citrate 100 Mcg/2 Ml* Vial IV 02/12/21 15:18 50 mcg STAT ONE Administration Fentanyl Citrate Confirm 02/12/21 15:46 Fentanyl Citrate 100 Mcg/2 Ml* Vial Administered 02/12/21 15:47 Dose 100 mcg .ROUTE .STK-MED ONE Hydralazine HCl 10 mg 02/12/21 19:42 02/12/21 19:49 Hydralazine Hcl 20 Mg/Ml Vial IV 02/12/21 19:43 10 mg STAT ONE Administration Hydralazine HCl Confirm 02/12/21 19:45 Hydralazine Hcl 20 Mg/Ml Vial Administered 02/12/21 19:46 Dose 20 mg .ROUTE .STK-MED ONE Ondansetron HCl 4 mg 02/12/21 15:17 02/12/21 15:49 Ondansetron Hcl 4 Mg/2 Ml Vial IV 02/12/21 15:18 4 mg STAT ONE Administration Ondansetron HCl Confirm 02/12/21 15:47 Ondansetron Hcl 4 Mg/2 Ml Vial Administered 02/12/21 15:48 Dose 4 mg .ROUTE .STK-MED ONE Potassium Bicarbonate 50 meq 02/12/21 14:47 02/12/21 14:53 Potassium Bicarbonate 25 Meq Tab PO 02/12/21 14:48 50 meq STAT ONE Administration Potassium Bicarbonate Confirm 02/12/21 14:52 Potassium Bicarbonate 25 Meq Tab Administered 02/12/21 14:53 Dose 50 meq .ROUTE .STK-MED ONE Lab/Rad Data: Laboratory Result Diagrams 02/12/21 14:00 02/12/21 14:00 Laboratory Results 02/12/21 02/12/21 02/12/21 Range/Units 17:18 17:18 14:00 WBC (4.0-10.5) K/mm3 RBC (4.1-5.4) M/mm3 Hgb (12.0-16.0) gm/dl Hct (35-47) % MCV (78-100) fl MCH (26-32) pg MCHC (32-36) g/dl RDW (11.5-14.0) % Plt Count (150-450) K/mm3 MPV (7.5-11.0) fl Gran % (36.0-66.0) % Eos # (Auto) (0-0.5) Absolute Lymphs (auto) (1.0-4.6) Absolute Monos (auto) (0.0-1.3) Lymphocytes % (24.0-44.0) % Monocytes % (0.0-12.0) % Eosinophils % (0.00-5.0) % Basophils % (0.0-0.4) % Absolute Granulocytes (1.4-6.9) Basophils # (0-0.4) Sodium 139 (137-145) mmol/L Potassium 2.9 L* (3.5-5.1) mmol/L Chloride 98 (98-107) mmol/L Carbon Dioxide 30 (22-30) mmol/L Anion Gap 14.4 (5-15) MEQ/L BUN 26 H (7-17) mg/dL Creatinine 0.99 (0.52-1.04) mg/dL Estimated GFR > 60.0 ML/MIN Glucose 117 H (74-106) mg/dL Calcium 9.6 (8.4-10.2) mg/dL Magnesium 1.8 (1.6-2.3) mg/dL Total Bilirubin 0.50 (0.2-1.3) mg/dL AST 68 H (14-36) U/L ALT 42 H (0-35) U/L Alkaline Phosphatase 75 (38-126) U/L Troponin I 0.014 0.012 (0.000-0.034) ng/mL NT-Pro-B Natriuret Pep 255 (0-900) pg/mL Serum Total Protein 7.8 (6.3-8.2) g/dL Albumin 4.3 (3.5-5.0) g/dL SARS-CoV-2 (PCR) NEGATIVE (NEGATIVE) 02/12/21 Range/Units 14:00 WBC 15.0 H (4.0-10.5) K/mm3 RBC 5.05 (4.1-5.4) M/mm3 Hgb 13.0 (12.0-16.0) gm/dl Hct 40.2 (35-47) % MCV 79.6 (78-100) fl MCH 25.7 L (26-32) pg MCHC 32.3 (32-36) g/dl RDW 15.1 H (11.5-14.0) % Plt Count 407 (150-450) K/mm3 MPV 9.7 (7.5-11.0) fl Gran % 79.4 H (36.0-66.0) % Eos # (Auto) 0.04 (0-0.5) Absolute Lymphs (auto) 2.10 (1.0-4.6) Absolute Monos (auto) 0.90 (0.0-1.3) Lymphocytes % 14.0 L (24.0-44.0) % Monocytes % 6.0 (0.0-12.0) % Eosinophils % 0.3 (0.00-5.0) % Basophils % 0.3 (0.0-0.4) % Absolute Granulocytes 11.90 H (1.4-6.9) Basophils # 0.04 (0-0.4) Sodium (137-145) mmol/L Potassium (3.5-5.1) mmol/L Chloride (98-107) mmol/L Carbon Dioxide (22-30) mmol/L Anion Gap (5-15) MEQ/L BUN (7-17) mg/dL Creatinine (0.52-1.04) mg/dL Estimated GFR ML/MIN Glucose (74-106) mg/dL Calcium (8.4-10.2) mg/dL Magnesium (1.6-2.3) mg/dL Total Bilirubin (0.2-1.3) mg/dL AST (14-36) U/L ALT (0-35) U/L Alkaline Phosphatase (38-126) U/L Troponin I (0.000-0.034) ng/mL NT-Pro-B Natriuret Pep (0-900) pg/mL Serum Total Protein (6.3-8.2) g/dL Albumin (3.5-5.0) g/dL SARS-CoV-2 (PCR) (NEGATIVE) - Progress Progress: unchanged Progress Note: 02/12/21 18:38 60 years old is evaluated for fall and syncopal episode x2. Patient has nonfocal neuro exam throughout stay in the ER. CT head, facial bones, cervical spine and chest is negative for any acute trauma related findings. CT lumbar spine read by teleradiology reported no acute fracture but read read by Dr. Zurita reports new nondisplaced L1 anterior superior corner fracture. Work-up showed white count of 15 which could be reactive, low potassium of 2.9 and normal magn esium. Started on potassium replacements oral and IV. Discussed with Dr. Baldwin, reviewed history, work-up and patient is accepted for admission to floor. Discussed with : Beata Counseled pt/family regarding: lab results, diagnosis, rad results - Departure Departure Disposition: Observation Clinical Impression: Syncope and collapse, Hypokalemia Closed L1 vertebral fracture Qualifiers: Encounter type: initial encounter Fracture morphology: unspecified fracture morphology Qualified Code(s): S32.019A - Unspecified fracture of first lumbar vertebra, initial encounter for closed fracture Facial contusion Qualifiers: Encounter type: initial encounter Qualified Code(s): S00.83XA - Contusion of other part of head, initial encounter Traumatic hematoma of forehead Qualifiers: Encounter type: initial encounter Qualified Code(s): S00.83XA - Contusion of other part of head, initial encounter Condition: Stable Critical Care Time: No
--- NOTE | 2021-02-12 18:17 | XRAY ---
Indication: Facial injury following syncopal fall. Multiple contiguous axial images obtained through the head without contrast. Comparison: None Normal appearing brain parenchyma, ventricles, and bony calvarium for patient's age. Small right frontal scalp soft tissue swelling. Visualized paranasal sinuses and mastoid air cells are clear. CT C spine and CT facial bones reported separately. Impression: Right frontal scalp soft tissue swelling. Negative CT head without contrast exam. Comment: Preliminary interpretation made by [facility]. No critical discrepancy.
--- NOTE | 2021-02-12 18:19 | XRAY ---
Indication: Facial injury following syncopal fall. Multiple contiguous axial images obtained through the cervical spine. Sagittal and coronal reformatted images obtained. Comparison: None Axial images negative for acute fracture, suspicious bony lesions, or spinal canal stenosis. Minimal/mild C3-C6 degenerative endplate spurring. Sagittal and coronal reformatted images demonstrates lordotic straightening, positional versus paraspinal spasm. C3-C4 and C5-C6 degenerative disc space narrowing. Minimal C7 anterior wedging favoring old fracture. Incidental small T1-T3 superior endplate Schmorl nodes. No acute compression fracture, subdivision, or jumped facet. Normal appearing craniocervical junction. Visualized noncontrasted soft tissues demonstrates mild heterogeneous thyroid gland and minimal right carotid calcifications. Lung apices are clear. CT head and CT facial bones reported separately. Impression: 1. Cervical lordotic straightening, positional versus paraspinal spasm. 2. Negative acute fracture/subluxation. 3. Incidental multilevel degenerative changes, remote C7 compression deformity, and T1-T3 Schmorl nodes. Comment: Preliminary interpretation made by [facility]. No critical discrepancy.
--- NOTE | 2021-02-12 18:21 | XRAY ---
Indication: Facial injury following syncopal fall. Multiple contiguous axial images obtained through the facial bones. Sagittal and coronal reformatted images obtained. Comparison: None Patient is edentulous. Axial images negative for acute fracture, suspicious bony lesions, or radiopaque foreign body. Orbits including roof, benito, and floors are intact. Paranasal sinuses and nasal passages are pneumatized and clear. Visualized noncontrasted soft tissues are unremarkable. CT head and CT C-spine reported separately. Impression: Negative CT facial bones. Comment: Preliminary interpretation made by [facility]. No critical discrepancy.
--- NOTE | 2021-02-12 18:27 | XRAY ---
Indication: Facial injury following syncopal fall. Multiple contiguous axial images obtained through the chest without contrast. Comparison: November 29, 2020 Lungs now demonstrates mild bilateral dependent atelectasis. Stable subcentimeter right perihilar calcified granuloma and subcentimeter right base noncalcified nodule. No suspicious pulmonary mass/nodule, infiltrate, effusion, or pneumothorax. Heart not enlarged. Aorta is normal in course and caliber. No pathologic mediastinal lymphadenopathy. Bony thorax intact again with mild degenerative changes throughout the spine. Limited upper abdomen unremarkable. Impression: 1. Stable right lung calcified/noncalcified nodules and mediastinal calcified nodes again presumed granulomatous. 2. Remaining CT chest without contrast exam is negative. Comment: Preliminary interpretation made by [facility]. No critical discrepancy.
--- NOTE | 2021-02-12 18:33 | XRAY ---
Indication: Low back pain following fall. Multiple contiguous axial images obtained through the lumbar spine. Sagittal and coronal reformatted images obtained. Comparison: November 29, 2020. Axial images again demonstrates mild/moderate multilevel thoracolumbar degenerative spondylosis again greatest at L3-S1 levels. There remains stable bilateral L3-S1 degenerative facet hypertrophy. SI joints are bilaterally symmetric. Sagittal and coronal reformatted images again demonstrate normal lumbar alignment, mild dextroscoliosis, and L3-S1 disc space narrowing. New nondisplaced anterior superior L1 corner fracture. No acute compression fracture or subluxation. The visualized noncontrasted soft tissues again demonstrates mild scattered aortoiliac calcifications without aneurysm. Impression: 1. New nondisplaced L1 anterosuperior corner fracture. 2. Grossly stable multilevel degenerative spondylosis, dextroscoliosis, and arteriosclerotic calcifications. Comment: Preliminary interpretation made by [facility] [place] who does not report L1 fracture. Telephone report given to Dr. De Jesus at 1827 hrs. on February 12, 2021.
[2021-02-12] MEDS ORDERED: DUONEB 0.5-3 MG/3 ml Neb IH SCH (19:40)
[2021-02-12] MEDS ORDERED: Zofran 4 MG/2 ML VIAL IV PRN (19:40)
[2021-02-12] MEDS ORDERED: TYLENOL 325 MG PO PRN (19:40)
[2021-02-12] MEDS ORDERED: APRESOLINE 20 MG/ML INJ IV ONE (19:42)
[2021-02-12] MEDS ORDERED: APRESOLINE 20 MG/ML INJ ONE (19:45)
[2021-02-12] MEDS ORDERED: DUONEB 0.5-3 MG/3 ml Neb IH PRN (20:49)
[2021-02-12] MEDS ORDERED: clonazePAM PO ONE (21:23)
[2021-02-12] MEDS ORDERED: Lexapro 10 MG PO ONE (21:24)
[2021-02-12] MEDS ORDERED: ZOCOR 20MG PO ONE (21:28)
[2021-02-12] MEDS ORDERED: KLONOPIN ONE (21:32)
[2021-02-12] MEDS: NORCO 5/325 MG PO PRN (21:40)
[2021-02-13 02:55] LABS: Absolute Neutrophil Ct (ANC) 4.81 (1.4-6.9); BASOPHIL % 0.2 % (0.0-0.4); Basophil (Absolute #) 0.02 (0-0.4); Eosinophil % 1.4 % (0.00-5.0); Eosinophil (Absolute #) 0.13 (0-0.5); Hematocrit 33.4 % (35-47); Hemoglobin 10.6 gm/dl (12.0-16.0); Lymphocyte (Absolute #) 3.35 (1.0-4.6); Lymphocytes % 37.1 % (24.0-44.0); Mean Cell Volume 80.7 fl (78-100); Mean Corpuscular Hemoglobin 25.6 pg (26-32); Mean Corpuscular Hgb Concent. 31.7 g/dl (32-36); Mean Platelet Volume 9.6 fl (7.5-11.0); Monocyte (Absolute #) 0.71 (0.0-1.3); Monocytes % 7.9 % (0.0-12.0); Neutrophil % 53.4 % (36.0-66.0); Platelet Count 325 K/mm3 (150-450); Red Blood Count 4.14 M/mm3 (4.1-5.4)
[2021-02-13 03:26] LABS: ALKALINE PHOSPHATASE 51 U/L (38-126); ANION GAP 7.7 MEQ/L (5-15); BLOOD UREA NITROGEN 18 mg/dL (7-17); CHLORIDE 103 mmol/L (98-107); Calcium 8.3 mg/dL (8.4-10.2); Carbon Dioxide 30 mmol/L (22-30); Creatinine 1 0.72 mg/dL (0.52-1.04); EST GLOMERULAR FILTRATION RATE > 60.0 ML/MIN; Glucose 94 mg/dL (74-106); Potassium 3.5 mmol/L (3.5-5.1); SGOT/AST 46 U/L (14-36); SGPT/ALT 31 U/L (0-35); SODIUM 137 mmol/L (137-145); Total Protein 5.9 g/dL (6.3-8.2)
[2021-02-13] MEDS: NORCO 5/325 MG PO PRN ×5 (04:01→22:36)
[2021-02-13] MEDS: Sodium Chloride 0.9% 1000 ML 1,000 ML IV SCH ×2 (09:58→18:51)
[2021-02-13] MEDS: clonazePAM PO SCH ×2 (10:54→21:06)
[2021-02-13] MEDS: PROTONIX 40 MG IV IV SCH (10:54)
--- NOTE | 2021-02-13 13:50 | PCM.HP ---
History of Present Illness - Chief Complaint Chief Complaint: Syncope and collapse, hypokalemia History of Present Illness: is a 60 year old female pt of Dr. Saba Cardenas in [place], [place] with HRN, hyperlipidemia, DM, anxiety, and depression who was admitted through ER with syncope x 2 and hypokalemia. Two days ago, she had been having pain in R buttock/R groin and she got up to get something, took 3 steps, and passed out - she does not remember the episode, but she apparently hit the toilet with her face/nose/mouth. She woke up on the floor with a mild nosebleed, and got up to stand at the bathroom sink and she fell backwards, apparently (had another syncopal episode) and hit the floor with her back/neck/head. When she woke up, she scooted on the floor to the bedroom, where she called her fiance and he came to attend her. She did not go to the ER until yesterday. In the ER, CT s-cpine, chest, face, and head are all negative, acutely. The lumbar CT was initially read as neg, but Dr. Zurita overread with new L1 corner fx, non-displaced. Today she tells me her R 3rd digit won't bend; has apparenlty been hurting since her falls, but the other parts of her body were hurting worse so she didn't bring it up. Pt had a previous syncopal episode in September 2020, when she had an CA. She apparently had a "heart MRI" at [facility] in [facility]] recently; I have requested that the med surg legal secretary request those records. Pt denies ever having an MRI brain or carotid dopplers. Did have an echocardiogram in September, she thinks. - Review of Systems Constitutional: Weight Loss (lost 100 lb in the past year, purposefully) Respiratory: No Short Of Breath Cardiac: No Chest Pain Abdominal/Gastrointestinal: Diarrhea (for the past 1 mo.) Neurological: Other (feels "stupid" since August 2020; foggy) Psychological: Anxiety, Depression (her PCP dx with depression, think this is the cause of her "foggy" mentation.), No Suicidal Ideations, No Homicidal Ideations All Other Systems: Reviewed and Negative Medications & Allergies Home Medications: Home Medication List Atorvastatin Calcium [Lipitor] 40 mg PO HS 02/12/21 [History Confirmed 02/13/21] Escitalopram Oxalate 10 mg [Lexapro 10 MG] 10 mg PO HS 02/12/21 [History Confirmed 02/13/21] Gabapentin [Neurontin] 300 mg PO HS 02/12/21 [History Confirmed 02/13/21] Metformin HCl 1,500 mg PO HS 02/12/21 [History Confirmed 02/13/21] Pramipexole Di-HCl [Mirapex] 1 mg PO HS 02/12/21 [History Confirmed 02/13/21] clonazePAM [Klonopin] 1.5 mg PO BID 02/12/21 [History Confirmed 02/13/21] Lisinopril 40 mg PO HS 02/13/21 [History Confirmed 02/13/21] Venlafaxine HCl [Venlafaxine HCl ER] 150 mg PO HS 02/13/21 [History Confirmed 02/13/21] Allergies/Adverse Reactions: Allergies Allergy/AdvReac Type Severity Reaction Status Date / Time No Known Drug Allergies Allergy Verified 02/12/21 13:38 - Past Medical History Past Medical History: Yes Neurological History: No Pertinent History ENT History: No Pertinent History Cardiac History: High Cholesterol, Hypertension Respiratory History: No Pertinent History Endocrine Medical History: Diabetes Type II GI Medical History: No Pertinent History History: No Pertinent History Pyscho-Social History: Anxiety, Depression Reproductive Disorders: No Pertinent History Comment: restless leg syndrome, anemia - Female History Are you now?: No - Past Surgical History Past Surgical History: Yes Neuro Surgical History: No Pertinent History Cardiac History: No Pertinent History Respiratory Surgery: No Pertinent History GI Surgical History: No Pertinent History Genitourinary Surgical Hx: No Pertinent History Musculskeletal Surgical Hx: Orthopedic Surgery Female Surgical History: Hysterectomy Other Surgical History: ankle ,knee - Social History Smoking Status: Current some day smoker How long have you smoked: years Exposure to second hand smoke: Yes Alcohol: None Drug Use: none - Physical Exam Vital Signs: Vital Signs - 24 hr Temp Pulse Resp BP Pulse Ox 02/13/21 12:00 18 02/13/21 10:06 83 100/51 98 02/13/21 10:05 74 110/51 96 02/13/21 07:56 18 02/13/21 07:06 97 02/13/21 07:00 98.4 F 76 16 100/56 93 L 02/13/21 04:00 97.7 F 70 18 81/50 94 L 02/13/21 00:00 99.1 F 75 16 89/52 94 L 02/12/21 22:12 98 02/12/21 21:05 80 16 93 L 02/12/21 20:38 98.2 F 82 18 96/55 95 02/12/21 20:00 16 02/12/21 19:07 82 18 174/83 98 02/12/21 18:38 97.8 F 78 20 174/83 98 02/12/21 17:11 83 18 160/81 96 02/12/21 16:31 75 20 179/96 100 02/12/21 15:59 98 02/12/21 15:58 75 18 175/89 88 L 02/12/21 15:09 97.5 F 76 20 224/103 98 02/12/21 14:38 73 18 217/98 95 General Appearance: no apparent distress, alert, other (face without marked tenderness throughout; no crepitus or step-offs.) Neurologic Exam: oriented x 3, cooperative, dragline operator II-XII nml as tested (inspector wire products 5/5 L, unable to check on R due to finger pain (cannot squeeze or even make the fist fully)) Eye Exam: PERRL/EOMI, other (purple bruising inferior to R eye) Ears, Nose, Throat Exam: pharynx normal, moist mucous membranes Neck Exam: normal inspection, non-tender, No thyromegaly Respiratory Exam: normal breath sounds, rhonchi (bilat bases), other (R clavicle ttp, no crepitus or step-offs), No crackles/rales, No wheezing Cardiovascular Exam: regular rate/rhythm, normal heart sounds, No murmur Gastrointestinal/Abdomen Exam: soft, normal bowel sounds, No tenderness, No distention, No mass, No guarding, No rebound Back Exam: normal inspection, No CVA tenderness Extremity Exam: other (R 3rd digit with mild edmea to MCP joint; no crepitus), No pedal edema Skin Exam: normal color, warm, dry, No rash Results - Labs Lab/Micro Results: Lab Results-Last 24 Hours 02/12/21 02/12/21 02/12/21 Range/Units 14:00 14:00 17:18 WBC 15.0 H (4.0-10.5) K/mm3 RBC 5.05 (4.1-5.4) M/mm3 Hgb 13.0 (12.0-16.0) gm/dl Hct 40.2 (35-47) % MCV 79.6 (78-100) fl MCH 25.7 L (26-32) pg MCHC 32.3 (32-36) g/dl RDW 15.1 H (11.5-14.0) % Plt Count 407 (150-450) K/mm3 MPV 9.7 (7.5-11.0) fl Gran % 79.4 H (36.0-66.0) % Eos # (Auto) 0.04 (0-0.5) Absolute Lymphs (auto) 2.10 (1.0-4.6) Absolute Monos (auto) 0.90 (0.0-1.3) Lymphocytes % 14.0 L (24.0-44.0) % Monocytes % 6.0 (0.0-12.0) % Eosinophils % 0.3 (0.00-5.0) % Basophils % 0.3 (0.0-0.4) % Absolute Granulocytes 11.90 H (1.4-6.9) Basophils # 0.04 (0-0.4) Sodium 139 (137-145) mmol/L Potassium 2.9 L* (3.5-5.1) mmol/L Chloride 98 (98-107) mmol/L Carbon Dioxide 30 (22-30) mmol/L Anion Gap 14.4 (5-15) MEQ/L BUN 26 H (7-17) mg/dL Creatinine 0.99 (0.52-1.04) mg/dL Estimated GFR > 60.0 ML/MIN Glucose 117 H (74-106) mg/dL POC Glucometer (74 to 106) mg/dL Hemoglobin A1c (4.5-6.0) % Calcium 9.6 (8.4-10.2) mg/dL Magnesium 1.8 (1.6-2.3) mg/dL Total Bilirubin 0.50 (0.2-1.3) mg/dL AST 68 H (14-36) U/L ALT 42 H (0-35) U/L Alkaline Phosphatase 75 (38-126) U/L Troponin I 0.012 0.014 (0.000-0.034) ng/mL NT-Pro-B Natriuret Pep 255 (0-900) pg/mL Serum Total Protein 7.8 (6.3-8.2) g/dL Albumin 4.3 (3.5-5.0) g/dL SARS-CoV-2 (PCR) (NEGATIVE) 02/12/21 02/12/21 02/12/21 Range/Units 17:18 20:05 23:01 WBC (4.0-10.5) K/mm3 RBC (4.1-5.4) M/mm3 Hgb (12.0-16.0) gm/dl Hct (35-47) % MCV (78-100) fl MCH (26-32) pg MCHC (32-36) g/dl RDW (11.5-14.0) % Plt Count (150-450) K/mm3 MPV (7.5-11.0) fl Gran % (36.0-66.0) % Eos # (Auto) (0-0.5) Absolute Lymphs (auto) (1.0-4.6) Absolute Monos (auto) (0.0-1.3) Lymphocytes % (24.0-44.0) % Monocytes % (0.0-12.0) % Eosinophils % (0.00-5.0) % Basophils % (0.0-0.4) % Absolute Granulocytes (1.4-6.9) Basophils # (0-0.4) Sodium (137-145) mmol/L Potassium (3.5-5.1) mmol/L Chloride (98-107) mmol/L Carbon Dioxide (22-30) mmol/L Anion Gap (5-15) MEQ/L BUN (7-17) mg/dL Creatinine (0.52-1.04) mg/dL Estimated GFR ML/MIN Glucose (74-106) mg/dL POC Glucometer (74 to 106) mg/dL Hemoglobin A1c (4.5-6.0) % Calcium (8.4-10.2) mg/dL Magnesium (1.6-2.3) mg/dL Total Bilirubin (0.2-1.3) mg/dL AST (14-36) U/L ALT (0-35) U/L Alkaline Phosphatase (38-126) U/L Troponin I < 0.012 < 0.012 (0.000-0.034) ng/mL NT-Pro-B Natriuret Pep (0-900) pg/mL Serum Total Protein (6.3-8.2) g/dL Albumin (3.5-5.0) g/dL SARS-CoV-2 (PCR) NEGATIVE (NEGATIVE) 02/13/21 02/13/21 02/13/21 Range/Units 02:52 02:52 02:52 WBC 9.0 (4.0-10.5) K/mm3 RBC 4.14 (4.1-5.4) M/mm3 Hgb 10.6 L (12.0-16.0) gm/dl Hct 33.4 L (35-47) % MCV 80.7 (78-100) fl MCH 25.6 L (26-32) pg MCHC 31.7 L (32-36) g/dl RDW 15.0 H (11.5-14.0) % Plt Count 325 (150-450) K/mm3 MPV 9.6 (7.5-11.0) fl Gran % 53.4 (36.0-66.0) % Eos # (Auto) 0.13 (0-0.5) Absolute Lymphs (auto) 3.35 (1.0-4.6) Absolute Monos (auto) 0.71 (0.0-1.3) Lymphocytes % 37.1 (24.0-44.0) % Monocytes % 7.9 (0.0-12.0) % Eosinophils % 1.4 (0.00-5.0) % Basophils % 0.2 (0.0-0.4) % Absolute Granulocytes 4.81 (1.4-6.9) Basophils # 0.02 (0-0.4) Sodium 137 (137-145) mmol/L Potassium 3.5 D (3.5-5.1) mmol/L Chloride 103 (98-107) mmol/L Carbon Dioxide 30 (22-30) mmol/L Anion Gap 7.7 (5-15) MEQ/L BUN 18 H (7-17) mg/dL Creatinine 0.72 (0.52-1.04) mg/dL Estimated GFR > 60.0 ML/MIN Glucose 94 (74-106) mg/dL POC Glucometer (74 to 106) mg/dL Hemoglobin A1c (4.5-6.0) % Calcium 8.3 L (8.4-10.2) mg/dL Magnesium (1.6-2.3) mg/dL Total Bilirubin 0.30 (0.2-1.3) mg/dL AST 46 H (14-36) U/L ALT 31 (0-35) U/L Alkaline Phosphatase 51 (38-126) U/L Troponin I < 0.012 (0.000-0.034) ng/mL NT-Pro-B Natriuret Pep (0-900) pg/mL Serum Total Protein 5.9 L (6.3-8.2) g/dL Albumin 3.0 L (3.5-5.0) g/dL SARS-CoV-2 (PCR) (NEGATIVE) 02/13/21 02/13/21 02/13/21 Range/Units 05:30 06:52 11:52 WBC (4.0-10.5) K/mm3 RBC (4.1-5.4) M/mm3 Hgb (12.0-16.0) gm/dl Hct (35-47) % MCV (78-100) fl MCH (26-32) pg MCHC (32-36) g/dl RDW (11.5-14.0) % Plt Count (150-450) K/mm3 MPV (7.5-11.0) fl Gran % (36.0-66.0) % Eos # (Auto) (0-0.5) Absolute Lymphs (auto) (1.0-4.6) Absolute Monos (auto) (0.0-1.3) Lymphocytes % (24.0-44.0) % Monocytes % (0.0-12.0) % Eosinophils % (0.00-5.0) % Basophils % (0.0-0.4) % Absolute Granulocytes (1.4-6.9) Basophils # (0-0.4) Sodium (137-145) mmol/L Potassium (3.5-5.1) mmol/L Chloride (98-107) mmol/L Carbon Dioxide (22-30) mmol/L Anion Gap (5-15) MEQ/L BUN (7-17) mg/dL Creatinine (0.52-1.04) mg/dL Estimated GFR ML/MIN Glucose (74-106) mg/dL POC Glucometer 109 H 122 H (74 to 106) mg/dL Hemoglobin A1c 5.68 (4.5-6.0) % Calcium (8.4-10.2) mg/dL Magnesium (1.6-2.3) mg/dL Total Bilirubin (0.2-1.3) mg/dL AST (14-36) U/L ALT (0-35) U/L Alkaline Phosphatase (38-126) U/L Troponin I (0.000-0.034) ng/mL NT-Pro-B Natriuret Pep (0-900) pg/mL Serum Total Protein (6.3-8.2) g/dL Albumin (3.5-5.0) g/dL SARS-CoV-2 (PCR) (NEGATIVE) Accuchecks Date 02/13/21 Date 02/13/21 Time 11:50 Time 07:09 - Radiology Impressions Radiology Exams & Impressions: Radiology Procedures Category Date Time Status CAROTID BILATERAL [US] Routine Exams 02/14/21 Ordered CERVICAL SPINE WO CONTRAST [CT] Stat Exams 02/12/21 13:45 Completed CHEST WITHOUT CONTRAST [CT] Stat Exams 02/12/21 13:45 Completed FACIAL BONES WO CONTRAST [CT] Stat Exams 02/12/21 13:45 Completed FINGER(S) Routine Exams 02/13/21 10:13 Taken HEAD WITHOUT CONTRAST [CT] Stat Exams 02/12/21 13:46 Completed LUMBAR SPINE W/O [CT] Stat Exams 02/12/21 15:09 Completed MRI BRAIN W & W/O CONTRAST [MRI] Routine Exams 02/13/21 13:42 Ordered Assessment/Plan (1) Syncope and collapse Current Visit: Yes Status: Acute Assessment & Plan: Unsure the etiology. Has been on monitor overnight. Will get MRI brain and carotid dopplers tomorrow. I doubt that the K+ of 2.9 cause her to have syncope. Code(s): R55 - SYNCOPE AND COLLAPSE (2) Hypokalemia Current Visit: Yes Status: Acute Assessment & Plan: initial potassium 2.9 - now 3.5. Discussed that I don't believe that potassium at that level would cause her syncope. Code(s): E87.6 - HYPOKALEMIA (3) Diabetes mellitus Current Visit: Yes Status: Acute Qualifiers: Diabetes mellitus type: type 2 Diabetes mellitus chcf insulin use: without chcf use Diabetes mellitus complication status: without complication Qualified Code(s): E11.9 - Type 2 diabetes mellitus without complications Code(s): E11.9 - TYPE 2 DIABETES MELLITUS WITHOUT COMPLICATIONS (4) Hyperlipidemia Current Visit: Yes Status: Acute Qualifiers: Hyperlipidemia type: unspecified Qualified Code(s): E78.5 - Hyperlipidemia, unspecified Code(s): E78.5 - HYPERLIPIDEMIA, UNSPECIFIED (5) Anxiety and depression Current Visit: Yes Status: Chronic Assessment & Plan: stable Code(s): F41.9 - ANXIETY DISORDER, UNSPECIFIED; F32.A - DEPRESSION, UNSPECIFIED (6) Closed L1 vertebral fracture Current Visit: Yes Status: Acute Qualifiers: Encounter type: initial encounter Fracture morphology: unspecified fracture morphology Qualified Code(s): S32.019A - Unspecified fracture of first lumbar vertebra, initial encounter for closed fracture Assessment & Plan: nondisplaced. can f/u with neurosurgery outpatient. Code(s): S32.019A - UNSP FRACTURE OF FIRST LUMBAR VERTEBRA, INIT FOR CLOS FX (7) Facial contusion Current Visit: Yes Status: Acute Qualifiers: Encounter type: initial encounter Qualified Code(s): S00.83XA - Contusion of other part of head, initial encounter Code(s): S00.83XA - CONTUSION OF OTHER PART OF HEAD, INITIAL ENCOUNTER (8) Finger pain, right Current Visit: Yes Status: Acute Assessment & Plan: XR R 3rd digit. Code(s): M79.644 - PAIN IN RIGHT FINGER(S)
--- NOTE | 2021-02-13 19:37 | XRAY ---
Indication: 3rd finger pain following fall. Comparison: None 3 view right 3rd finger demonstrates mild osteopenia and a ring at the base 4th finger. No other bony, articular, or soft tissue abnormalities.
[2021-02-13] MEDS: Mirapex 0.5 MG Tablet PO SCH (21:05)
[2021-02-13] MEDS: NEURONTIN 300 MG PO SCH (21:06)
[2021-02-13] MEDS: Effexor XR 75 MG PO SCH (21:06)
[2021-02-13] MEDS: ZOCOR 20MG PO SCH (21:06)
[2021-02-13] MEDS: Lexapro 10 MG PO SCH (21:06)
[2021-02-13] MEDS: Zestril 20 MG PO SCH (21:17)
[2021-02-13] MEDS ORDERED: CLONAZEPAM 1 MG PO SCH (22:00)
[2021-02-13] MEDS ORDERED: NON-FORMULARY ITEM (Atorvastatin Calcium [Lipitor] 80 MG Tablet) PO SCH (22:00)
[2021-02-13] MEDS ORDERED: NON-FORMULARY ITEM (Lisinopril [Lisinopril] 40 MG Tablet) PO SCH (22:00)
[2021-02-13] MEDS ORDERED: Neurontin 400 MG PO SCH (22:00)
[2021-02-13] MEDS ORDERED: NON-FORMULARY ITEM (Venlafaxine Hcl [Venlafaxine Hcl Er] 150 MG Tab.Er.24) PO SCH (22:00)
[2021-02-14] MEDS: NORCO 5/325 MG PO PRN ×4 (02:15→19:41)
[2021-02-14] MEDS: Sodium Chloride 0.9% 1000 ML 1,000 ML IV SCH ×3 (04:34→22:19)
[2021-02-14] MEDS: PROTONIX 40 MG IV IV SCH (09:16)
[2021-02-14] MEDS: clonazePAM PO SCH ×2 (09:16→22:29)
--- NOTE | 2021-02-14 10:30 | XRAY ---
Indication: Syncope. Sagittal, coronal, and axial MRI brain performed using pre-and post T1, T2, FLAIR, diffusion, and ADC sequences. 15 cc Dotarem contrast used. Comparison: None Ventriculosulcal pattern appears symmetric. No acute intracranial hemorrhage, abnormal extra-axial fluid collection, or mass effect. Diffusion images are negative for restricted signal. Following gadolinium, there is no abnormal enhancing intra or extra axial mass. Fourth ventricle is midline without hydrocephalus. 7/8 cranial nerve complex bilaterally symmetric. Normal flow void signal within the major intracerebral circulation. Normal appearing craniocervical junction and sella turcica. Paranasal sinuses are clear. Impression: Negative MRI brain with contrast exam.
--- NOTE | 2021-02-14 10:55 | XRAY ---
Indication: Syncope. Two-dimensional sonogram and color Doppler imaging of the carotid arteries of the neck performed. Comparison: None Examination of the right carotid circulation demonstrates minimal arteriosclerotic plaquing at the level of the bulb and proximal external carotid artery. Remaining common carotid and internal carotid artery widely patent. PSV of the CCA is 80 cm/s. PSV of the ICA is 82 cm/s. ICA/CCA ratio is 1.0. Normal antegrade vertebral artery flow. Examination of the left carotid circulation demonstrates minimal arteriosclerotic plaquing proximal internal carotid artery. Remaining common carotid, carotid bulb, and internal carotid arteries are widely patent. Incidentally, distal internal carotid artery is tortuous. PSV of the CCA is 137 cm/s. PSV of the ICA is 71 cm/s. ICA/CCA ratio is 0.5. Normal antegrade vertebral artery flow. Impression: Minimal arteriosclerotic plaquing bilaterally as detailed. Velocity measurements and ratios are negative for hemodynamically significant flow limiting stenosis.
--- NOTE | 2021-02-14 13:44 | PCM.NOTE ---
Date and Time: 02/14/21 1344 Subjective Assessment: Patient is resting comfortably in bed but excruciating pain in low back when tried to sit up. PT is here and will see about a binder. Syncope work up in progress had MRI brain carotid doppler and EEG. Patient states she had a Cardiac [place] ordered last time she was admitted for syncope this summer by Regional Marketing Manager Dr Boothe but lost her insurance and did not follow up. I have requested records. Objective Exam General Appearance: moderate distress (when moving torso caused back pain at fx siteL1) Neurologic Exam: alert, oriented x 3, cooperative, normal mood/affect Skin Exam: normal color, warm, dry Eye Exam: other (no icterus) Ears, Nose, Throat Exam: moist mucous membranes, other (nasal contusion with mild congestion) Neck Exam: normal inspection Respiratory Exam: other (no wheeze no rales no ronchi) Cardiovascular Exam: regular rate/rhythm Extremity Exam: normal inspection Back Exam: vertebral tenderness (lumbar), muscle spasm OBJECTIVE DATA Vital Signs: Vital Signs - 24 hr Temp Pulse Resp BP Pulse Ox 02/14/21 12:00 97.7 F 71 19 144/69 97 02/14/21 08:00 97.4 F 75 16 141/68 95 02/14/21 07:41 17 02/14/21 04:00 97.9 F 73 17 111/55 94 L 02/14/21 00:00 18 02/13/21 23:45 97.7 F 72 18 115/56 95 02/13/21 20:00 19 02/13/21 19:56 98.2 F 71 19 123/60 98 02/13/21 16:00 18 02/13/21 14:00 97.5 F 72 18 108/53 98 Pain Assessment - Last Documented Pain Intensity 4 Pain Scale Used 0-10 Pain Scale Intake and Output: Intake & Output 02/12/21 02/13/21 02/14/21 02/15/21 11:59 11:59 11:59 11:59 Intake Total 2413 4452 Output Total 700 Balance 2413 3752 Weight 81.9 kg 85.4 kg Lab Results: Lab Results-Last 24 Hours 02/13/21 02/13/21 02/14/21 Range/Units 16:25 20:19 07:35 POC Glucometer 114 H 101 91 (74 to 106) mg/dL 02/14/21 Range/Units 12:26 POC Glucometer 109 H (74 to 106) mg/dL Radiology Exams: Radiology Procedures Category Date Time Status CAROTID BILATERAL [US] Routine Exams 02/14/21 10:45 Completed CERVICAL SPINE WO CONTRAST [CT] Stat Exams 02/12/21 13:45 Completed CHEST WITHOUT CONTRAST [CT] Stat Exams 02/12/21 13:45 Completed FACIAL BONES WO CONTRAST [CT] Stat Exams 02/12/21 13:45 Completed FINGER(S) Routine Exams 02/13/21 10:13 Completed HEAD WITHOUT CONTRAST [CT] Stat Exams 02/12/21 13:46 Completed LUMBAR SPINE W/O [CT] Stat Exams 02/12/21 15:09 Completed MRI BRAIN W & W/O CONTRAST [MRI] Routine Exams 02/14/21 13:42 Completed Assessment/Plan (1) Syncope and collapse Current Visit: Yes Status: Acute Assessment & Plan: Carotid doppler very mild plaque, MRI brain -unremarkable, EEG-unremarkable Code(s): R55 - SYNCOPE AND COLLAPSE (2) Closed L1 vertebral fracture Current Visit: Yes Status: Acute Qualifiers: Encounter type: initial encounter Fracture morphology: unspecified fracture morphology Qualified Code(s): S32.019A - Unspecified fracture of first lumbar vertebra, initial encounter for closed fracture Assessment & Plan: pain fairly well controlled with Marshall Code(s): S32.019A - UNSP FRACTURE OF FIRST LUMBAR VERTEBRA, INIT FOR CLOS FX (3) Facial contusion Current Visit: Yes Status: Acute Qualifiers: Encounter type: initial encounter Qualified Code(s): S00.83XA - Contusion of other part of head, initial encounter Assessment & Plan: no fx Code(s): S00.83XA - CONTUSION OF OTHER PART OF HEAD, INITIAL ENCOUNTER (4) Hypokalemia Current Visit: Yes Status: Resolved Code(s): E87.6 - HYPOKALEMIA
[2021-02-14] MEDS: NEURONTIN 300 MG PO SCH (22:29)
[2021-02-14] MEDS: Effexor XR 75 MG PO SCH (22:29)
[2021-02-14] MEDS: ZOCOR 20MG PO SCH (22:30)
[2021-02-14] MEDS: Lexapro 10 MG PO SCH (22:30)
[2021-02-14] MEDS: Mirapex 0.5 MG Tablet PO SCH (22:30)
[2021-02-14] MEDS: Zestril 20 MG PO SCH (22:35)
[2021-02-15] MEDS: NORCO 5/325 MG PO PRN ×2 (00:17→07:44)
[2021-02-15 04:56] LABS: BASOPHIL % 0.9 % (0.0-0.4); Basophil (Absolute #) 0.05 (0-0.4); Eosinophil % 3.6 % (0.00-5.0); Eosinophil (Absolute #) 0.21 (0-0.5); Hematocrit 31.9 % (35-47); Hemoglobin 9.9 gm/dl (12.0-16.0); Lymphocyte (Absolute #) 2.11 (1.0-4.6); Lymphocytes % 36.1 % (24.0-44.0); Mean Cell Volume 82.6 fl (78-100); Mean Corpuscular Hemoglobin 25.6 pg (26-32); Mean Platelet Volume 10.1 fl (7.5-11.0); Monocyte (Absolute #) 0.47 (0.0-1.3); Neutrophil % 51.4 % (36.0-66.0); Platelet Count 287 K/mm3 (150-450); Red Blood Count 3.86 M/mm3 (4.1-5.4); White Blood Count 5.8 K/mm3 (4.0-10.5)
[2021-02-15 05:28] LABS: ALBUMIN 2.8 g/dL (3.5-5.0); ALKALINE PHOSPHATASE 51 U/L (38-126); ANION GAP 8.2 MEQ/L (5-15); BLOOD UREA NITROGEN 15 mg/dL (7-17); CHLORIDE 104 mmol/L (98-107); Calcium 8.3 mg/dL (8.4-10.2); Carbon Dioxide 27 mmol/L (22-30); Creatinine 1 0.59 mg/dL (0.52-1.04); EST GLOMERULAR FILTRATION RATE > 60.0 ML/MIN; Glucose 106 mg/dL (74-106); Potassium 3.9 mmol/L (3.5-5.1); SGOT/AST 117 U/L (14-36); SGPT/ALT 86 U/L (0-35); SODIUM 135 mmol/L (137-145); Total Protein 5.5 g/dL (6.3-8.2)
[2021-02-15 07:27] VITALS: O2SAT 96
[2021-02-15] MEDS: Sodium Chloride 0.9% 1000 ML 1,000 ML IV SCH ×2 (07:38→11:16)
[2021-02-15] MEDS: PROTONIX 40 MG IV IV SCH (09:34)
[2021-02-15] MEDS: clonazePAM PO SCH (09:34)
--- NOTE | 2021-02-15 09:56 | PCM.NOTE ---
Date and Time: 02/15/21 0955 OBJECTIVE DATA Vital Signs: Vital Signs - 24 hr Temp Pulse Resp BP Pulse Ox 02/15/21 07:26 98.0 F 74 16 136/73 96 02/15/21 04:00 96.2 F 77 18 137/68 94 L 02/14/21 23:57 98.4 F 84 18 125/60 97 02/14/21 19:25 97.9 F 97 H 18 135/63 94 L 02/14/21 16:00 97.0 F 90 16 130/58 96 02/14/21 12:00 97.7 F 71 19 144/69 97 Pain Assessment - Last Documented Pain Intensity 0 Pain Scale Used 0-10 Pain Scale Intake and Output: Intake & Output 02/12/21 02/13/21 02/14/21 02/15/21 11:59 11:59 11:59 11:59 Intake Total 2413 4452 1460 Output Total 700 250 Balance 2413 3752 1210 Weight 81.9 kg 85.4 kg 85 kg Lab Results: Lab Results-Last 24 Hours 02/14/21 02/14/21 02/14/21 Range/Units 12:26 16:46 20:30 WBC (4.0-10.5) K/mm3 RBC (4.1-5.4) M/mm3 Hgb (12.0-16.0) gm/dl Hct (35-47) % MCV (78-100) fl MCH (26-32) pg MCHC (32-36) g/dl RDW (11.5-14.0) % Plt Count (150-450) K/mm3 MPV (7.5-11.0) fl Gran % (36.0-66.0) % Eos # (Auto) (0-0.5) Absolute Lymphs (auto) (1.0-4.6) Absolute Monos (auto) (0.0-1.3) Lymphocytes % (24.0-44.0) % Monocytes % (0.0-12.0) % Eosinophils % (0.00-5.0) % Basophils % (0.0-0.4) % Absolute Granulocytes (1.4-6.9) Basophils # (0-0.4) Sodium (137-145) mmol/L Potassium (3.5-5.1) mmol/L Chloride (98-107) mmol/L Carbon Dioxide (22-30) mmol/L Anion Gap (5-15) MEQ/L BUN (7-17) mg/dL Creatinine (0.52-1.04) mg/dL Estimated GFR ML/MIN Glucose (74-106) mg/dL POC Glucometer 109 H 127 H 131 H (74 to 106) mg/dL Calcium (8.4-10.2) mg/dL Total Bilirubin (0.2-1.3) mg/dL AST (14-36) U/L ALT (0-35) U/L Alkaline Phosphatase (38-126) U/L Serum Total Protein (6.3-8.2) g/dL Albumin (3.5-5.0) g/dL 02/15/21 02/15/21 02/15/21 Range/Units 04:30 04:30 07:15 WBC 5.8 (4.0-10.5) K/mm3 RBC 3.86 L (4.1-5.4) M/mm3 Hgb 9.9 L (12.0-16.0) gm/dl Hct 31.9 L (35-47) % MCV 82.6 (78-100) fl MCH 25.6 L (26-32) pg MCHC 31.0 L (32-36) g/dl RDW 15.0 H (11.5-14.0) % Plt Count 287 (150-450) K/mm3 MPV 10.1 (7.5-11.0) fl Gran % 51.4 (36.0-66.0) % Eos # (Auto) 0.21 (0-0.5) Absolute Lymphs (auto) 2.11 (1.0-4.6) Absolute Monos (auto) 0.47 (0.0-1.3) Lymphocytes % 36.1 (24.0-44.0) % Monocytes % 8.0 (0.0-12.0) % Eosinophils % 3.6 (0.00-5.0) % Basophils % 0.9 (0.0-0.4) % Absolute Granulocytes 3.00 (1.4-6.9) Basophils # 0.05 (0-0.4) Sodium 135 L (137-145) mmol/L Potassium 3.9 (3.5-5.1) mmol/L Chloride 104 (98-107) mmol/L Carbon Dioxide 27 (22-30) mmol/L Anion Gap 8.2 (5-15) MEQ/L BUN 15 (7-17) mg/dL Creatinine 0.59 (0.52-1.04) mg/dL Estimated GFR > 60.0 ML/MIN Glucose 106 (74-106) mg/dL POC Glucometer 84 (74 to 106) mg/dL Calcium 8.3 L (8.4-10.2) mg/dL Total Bilirubin 0.20 (0.2-1.3) mg/dL AST 117 H (14-36) U/L ALT 86 H (0-35) U/L Alkaline Phosphatase 51 (38-126) U/L Serum Total Protein 5.5 L (6.3-8.2) g/dL Albumin 2.8 L (3.5-5.0) g/dL Radiology Exams: Radiology Procedures Category Date Time Status CAROTID BILATERAL [US] Routine Exams 02/14/21 10:45 Completed FINGER(S) Routine Exams 02/13/21 10:13 Completed MRI BRAIN W & W/O CONTRAST [MRI] Routine Exams 02/14/21 13:42 Completed Multi-Disciplinary Progress Notes: Multi-Disciplinary Progress Notes 02/14/21 14:03 Respiratory Note by Daly Diaz EEG RESULTS FAXED TO DR. RAI. Initialized on 02/14/21 14:03 - END OF NOTE
[2021-02-15 11:56] VITALS: BP 139/79; PULSE 82
--- NOTE | 2021-02-15 17:39 | PCM.DS ---
Discharge Summary Date of Admission: 02/12/21 19:38 Date of Discharge: 02/15/2021 Admitting Physician: MEKA NEWELL Primary Care Provider: YELENA CARDENAS Allergies Allergies No Known Drug Allergies Allergy (Verified 02/12/21 13:38) Hospital Summary - Hospital Course Hospital Course: Patient was admitted after syncopal episodes with injury -contused facial bones and L1 vertebral closed anteriolateral fracture.She had a syncopal episode this summer and hospitalized in [place], [place]. Patient states Dr Boothe followed and ordered a Cardiac MRI done in [facility]. She was not able to follow with him because she lost her insurance. Cardiac MRI showed moderate ventricular septal thickening. MRI of brain ,carotid doppler and EEG were unremarkable this admission. Patient did not have any syncope while hospitalized but is aware that she is still at risk. Patient understands she she not be alone,is not to drive.She will be off work until her PCP,Lory Cardenas releases her. Appt made with PCP and Dr Boothe,Cso. A 7 day holter event monitor was ordered on discharge. Pain med- Hydrocodone 5mg #20 was sent to [facility] via [employer]. Hgb was 9.9 and a stool for occult blood was ordered. Liver enzymes were elevated today and a Hepatits Panel is pending.Patient can contact me through the hospital chain machine operator if needed. - Vitals & Intake/Output Vital Signs: Vital Signs Temperature 98.4 F 02/15/21 11:55 Pulse Rate 82 02/15/21 11:55 Respiratory Rate 16 02/15/21 11:55 Blood Pressure 139/79 02/15/21 11:55 O2 Sat by Pulse Oximetry 96 02/15/21 11:55 Intake & Output: Intake & Output 02/13/21 02/14/21 02/15/21 02/16/21 11:59 11:59 11:59 11:59 Intake Total 2413 4452 1460 480 Output Total 700 250 600 Balance 2413 3752 1210 -120 Weight 81.9 kg 85.4 kg 85 kg - Lab Result Diagrams: 02/15/21 04:30 02/15/21 04:30 Lab Results-Last 24 Hrs: Lab Results-Last 24 Hours 02/14/21 02/15/21 02/15/21 Range/Units 20:30 04:30 04:30 WBC 5.8 (4.0-10.5) K/mm3 RBC 3.86 L (4.1-5.4) M/mm3 Hgb 9.9 L (12.0-16.0) gm/dl Hct 31.9 L (35-47) % MCV 82.6 (78-100) fl MCH 25.6 L (26-32) pg MCHC 31.0 L (32-36) g/dl RDW 15.0 H (11.5-14.0) % Plt Count 287 (150-450) K/mm3 MPV 10.1 (7.5-11.0) fl Gran % 51.4 (36.0-66.0) % Eos # (Auto) 0.21 (0-0.5) Absolute Lymphs (auto) 2.11 (1.0-4.6) Absolute Monos (auto) 0.47 (0.0-1.3) Lymphocytes % 36.1 (24.0-44.0) % Monocytes % 8.0 (0.0-12.0) % Eosinophils % 3.6 (0.00-5.0) % Basophils % 0.9 (0.0-0.4) % Absolute Granulocytes 3.00 (1.4-6.9) Basophils # 0.05 (0-0.4) Sodium 135 L (137-145) mmol/L Potassium 3.9 (3.5-5.1) mmol/L Chloride 104 (98-107) mmol/L Carbon Dioxide 27 (22-30) mmol/L Anion Gap 8.2 (5-15) MEQ/L BUN 15 (7-17) mg/dL Creatinine 0.59 (0.52-1.04) mg/dL Estimated GFR > 60.0 ML/MIN Glucose 106 (74-106) mg/dL POC Glucometer 131 H (74 to 106) mg/dL Calcium 8.3 L (8.4-10.2) mg/dL Total Bilirubin 0.20 (0.2-1.3) mg/dL AST 117 H (14-36) U/L ALT 86 H (0-35) U/L Alkaline Phosphatase 51 (38-126) U/L Serum Total Protein 5.5 L (6.3-8.2) g/dL Albumin 2.8 L (3.5-5.0) g/dL 02/15/21 02/15/21 Range/Units 07:15 11:21 WBC (4.0-10.5) K/mm3 RBC (4.1-5.4) M/mm3 Hgb (12.0-16.0) gm/dl Hct (35-47) % MCV (78-100) fl MCH (26-32) pg MCHC (32-36) g/dl RDW (11.5-14.0) % Plt Count (150-450) K/mm3 MPV (7.5-11.0) fl Gran % (36.0-66.0) % Eos # (Auto) (0-0.5) Absolute Lymphs (auto) (1.0-4.6) Absolute Monos (auto) (0.0-1.3) Lymphocytes % (24.0-44.0) % Monocytes % (0.0-12.0) % Eosinophils % (0.00-5.0) % Basophils % (0.0-0.4) % Absolute Granulocytes (1.4-6.9) Basophils # (0-0.4) Sodium (137-145) mmol/L Potassium (3.5-5.1) mmol/L Chloride (98-107) mmol/L Carbon Dioxide (22-30) mmol/L Anion Gap (5-15) MEQ/L BUN (7-17) mg/dL Creatinine (0.52-1.04) mg/dL Estimated GFR ML/MIN Glucose (74-106) mg/dL POC Glucometer 84 105 (74 to 106) mg/dL Calcium (8.4-10.2) mg/dL Total Bilirubin (0.2-1.3) mg/dL AST (14-36) U/L ALT (0-35) U/L Alkaline Phosphatase (38-126) U/L Serum Total Protein (6.3-8.2) g/dL Albumin (3.5-5.0) g/dL Micro Results-Entire Visit: Accuchecks Date 02/15/21 Date 02/14/21 Time 11:54 - Radiology Exams Ordered Rad Exams-Entire Visit: Radiology Procedures Category Date Time Status CAROTID BILATERAL [US] Routine Exams 02/14/21 10:45 Completed MRI BRAIN W & W/O CONTRAST [MRI] Routine Exams 02/14/21 13:42 Completed - Procedures and Test Procedures and Tests throughout Hospitalization: Therapy Orders & Screens 02/12/21 21:29 Respiratory Therapy Assessment DAILY Comment: Diagnosis: Syncope and collapse, hypokalemia 02/13/21 13:44 PT Eval & Treat ( Order) ONCE Reason for Eval:: pain s/p falls. L1 fracture Diagnosis: Syncope and collapse, hypokalemia 02/14/21 09:30 EEG 41-60 Minutes (Normal) ONCE Comment: Reason For Exam: Diagnosis: Syncope and collapse, hypokalemia Final Diagnosis/Problem List - Final Discharge Diagnosis/Problem (1) Syncope and collapse Status: Acute Code(s): R55 - SYNCOPE AND COLLAPSE (2) Closed L1 vertebral fracture Status: Acute Code(s): S32.019A - UNSP FRACTURE OF FIRST LUMBAR VERTEBRA, INIT FOR CLOS FX (3) Facial contusion Status: Acute Code(s): S00.83XA - CONTUSION OF OTHER PART OF HEAD, INITIAL ENCOUNTER (4) Hypokalemia Status: Resolved Code(s): E87.6 - HYPOKALEMIA (5) Anemia Status: Acute Assessment & Plan: hemetest stool and workup with PCP Code(s): D64.9 - ANEMIA, UNSPECIFIED (6) Elevated liver enzymes Status: Acute Assessment & Plan: Hepatitis panel otrdered,follow up as outptn with PCP. Code(s): R74.8 - ABNORMAL LEVELS OF OTHER SERUM ENZYMES (7) Ventricular septal defect Status: Chronic Assessment & Plan: thickened ventricular septum per MRI done this summer-will follow with DR Boothe Cso Code(s): Q21.0 - VENTRICULAR SEPTAL DEFECT - Discharge Disposition: Home, Self-Care Condition: Stable Prescriptions: Continue Escitalopram Oxalate 10 mg [Lexapro 10 MG] 10 mg PO HS clonazePAM [Klonopin] 1.5 mg PO BID Metformin HCl 1,500 mg PO HS Atorvastatin Calcium [Lipitor] 40 mg PO HS Gabapentin [Neurontin] 300 mg PO HS Pramipexole Di-HCl [Mirapex] 1 mg PO HS Lisinopril 40 mg PO HS Venlafaxine HCl [Venlafaxine HCl ER] 150 mg PO HS Outpatient Orders: FECAL OCCULT BLOOD -DIAGNOSTIC Facility: [facility] Hosp, Location: LABORATORY Physical Therapy Eval & Treat Facility: [facility], Location: PHYSICAL THERAPY Instructions: Syncope (Fainting) (DC), Ventricular Septal Defects in Adults Follow up with: DOROTHEA CARDENAS MD [NON-STAFF PHY W/O PRIVILEGES] - 02/22/21 9:00 am KIMBERLY BOOTHE [CONSULTING PHYSICIAN] - 02/16/21 12:00 pm (NURSE REQUESTED I FAXED RECORDS TO [phone]) Forms: Work/School Release Form
[2021-02-17 09:13] LABS: HBsAg Screen Negative (Negative); Hep A Ab, IgM Negative (Negative); Hep B Core Ab, IgM Negative (Negative)
[2021-02-17 09:58] LABS: Hep C Virus Ab 0.1 s/co ratio (0.0-0.9)
== END 2021-02-15 16:13 | disposition home or self-care (01) ==
LOC: ED 13:20 → MED SURG 19:38
PROVIDERS: ADMIT Family Medicine; ATTEND Family Medicine
DX: R55 Syncope and collapse (principal); S32.019A Unspecified fracture of first lumbar vertebra, initial encounter for closed fracture; S00.83XA Contusion of other part of head, initial encounter; W18.39XA Other fall on same level, initial encounter; Y92.002 Bathroom of unspecified non-institutional (private) residence as the place of occurrence of the external cause; E11.9 Type 2 diabetes mellitus without complications; E87.6 Hypokalemia; I10 Essential (primary) hypertension; D64.9 Anemia, unspecified; E78.5 Hyperlipidemia, unspecified; R51.9 Headache, unspecified; R74.8 Abnormal levels of other serum enzymes; Q21.0 Ventricular septal defect; M54.2 Cervicalgia; M54.9 Dorsalgia, unspecified; Z79.899 Other long term (current) drug therapy; E78.00 Pure hypercholesterolemia, unspecified; M79.644 Pain in right finger(s); Z20.822 Contact with and (suspected) exposure to COVID-19
CPT/HCPCS: 36000; 36415; 70450; 70486; 70553; 71250; 72125; 72131; 73140; 80053; 80074; 82947; 83036; 83735; 83880; 84484; 85025; 93005; 93041; 93242; 93268; 93880; 94760; 95812; 96374; 96375; 97110; 97161; 99285; G0378; U0003; J0360; J2405; J3010; J3480; L0172; L0625; A9270-GY

== ENCOUNTER 2021-09-20 00:52 | Emergency (ER) | payer BC ==
[2021-09-20] MEDS ORDERED: Hydromorphone 1 mg/ml Injection IV ONE ×2 (00:53→01:11)
[2021-09-20] MEDS ORDERED: Zofran 4 MG/2 ML VIAL IV ONE (00:53)
--- NOTE | 2021-09-20 00:53 | ERPHSYRPT ---
- History of Present Illness Time Seen by Provider: 09/20/21 00:53 Source: patient, EMS Exam Limitations: clinical condition Physician History: 61-year-old white female who underwent a right knee replacement on 08/12/[address] Mckinnon at [facility]. She was at home after work walking and patient turned and stated that her right knee "gave out". There was immediate, severe pain with sudden increase in swelling. Patient has a history of restless leg syndrome, elevated cholesterol, gto-tcdtaft-islyxxxvl diabetes and hypertension. This all occurred approximately midnight. Patient is unable to flex or extend the right knee from the flexed position. Patient has an appointment with her orthopedic surgeon this morning at 8:30 AM. Occurred: just prior to arrival Quality: constant, aching, throbbing Severity of Pain-Max: moderate (To severe) Severity of Pain-Current: moderate Lower Extremities Pain: knee: right Modifying Factors: Improves With: movement Associated Symptoms: unable to bear weight Allergies/Adverse Reactions: No Known Drug Allergies Allergy (Verified 09/20/21 01:46) Home Medications: Atorvastatin Calcium [Lipitor] 40 mg PO HS 02/12/21 [History] Escitalopram Oxalate [Lexapro] 10 mg PO HS 02/12/21 [History] Gabapentin [Neurontin] 300 mg PO HS 02/12/21 [History] Metformin HCl 1,500 mg PO HS 02/12/21 [History] Pramipexole Di-HCl [Mirapex] 1 mg PO HS 02/12/21 [History] clonazePAM [Klonopin] 1.5 mg PO BID 02/12/21 [History] Venlafaxine HCl [Venlafaxine HCl ER] 150 mg PO HS 02/13/21 [History] lisinopriL [Lisinopril] 40 mg PO HS 02/13/21 [History] Hx Tetanus, Diphtheria Vaccination/Date Given: No Hx Influenza Vaccination/Date Given: Yes Hx Pneumococcal Vaccination/Date Given: No Travel Risk - International Travel Have you traveled outside of the country in past 3 weeks: No - Coronavirus Screening Are you exhibiting any of the following symptoms?: No Close contact with a COVID-19 positive Pt in past 14-21 Days: No - Vaccine Status Have you recieved a Covid-19 vaccination: Yes Long Term: [employer] - Vaccination Dates Date of 2cond Vaccination (if applicable): 07/26/2020 - Review of Systems Constitutional: No Symptoms Eyes: No Symptoms Ears, Nose, & Throat: No Symptoms Respiratory: No Symptoms Cardiac: No Symptoms Abdominal/Gastrointestinal: No Symptoms Genitourinary Symptoms: No Symptoms Musculoskeletal: Joint Pain (Right knee), Joint Swelling (Right knee with most swelling in the anterior compartment) Skin: No Symptoms Neurological: No Symptoms Psychological: No Symptoms Endocrine: No Symptoms Hematologic/Lymphatic: No Symptoms Immunological/Allergic: No Symptoms All Other Systems: Reviewed and Negative - Past Medical History Pertinent Past Medical History: Yes Neurological History: No Pertinent History ENT History: No Pertinent History Cardiac History: High Cholesterol, Hypertension Respiratory History: No Pertinent History Endocrine Medical History: Diabetes Type II GI Medical History: No Pertinent History History: No Pertinent History Psycho-Social History: Anxiety, Depression Female Reproductive Disorders: No Pertinent History Other Medical History: restless leg syndrome, anemia - Past Surgical History Past Surgical History: Yes Neuro Surgical History: No Pertinent History Cardiac: No Pertinent History Respiratory: No Pertinent History Gastrointestinal: No Pertinent History Genitourinary: No Pertinent History Musculoskeletal: Orthopedic Surgery Female Surgical History: Hysterectomy Other Surgical History: ankle ,knee - Social History Smoking Status: Current some day smoker How long have you smoked: years Exposure to second hand smoke: Yes Drug Use: none Patient Lives Alone: Yes - Nursing Vital Signs Nursing Vital Signs: Initial Vital Signs Temperature 98.4 F 09/20/21 01:00 Pulse Rate 94 H 09/20/21 01:00 Respiratory Rate 18 09/20/21 01:00 Blood Pressure 178/111 09/20/21 01:00 O2 Sat by Pulse Oximetry 97 09/20/21 01:00 Pain Scale Pain Intensity 10 - Physical Exam General Appearance: moderate distress, alert, anxiety Eyes, Ears, Nose, Throat Exam: normal ENT inspection, moist mucous membranes Neck Exam: normal inspection, non-tender, supple, full range of motion Cardiovascular/Respiratory Exam: chest non-tender, no respiratory distress Gastrointestinal/Abdominal Exam: non-tender Back Exam: normal inspection, normal range of motion, No CVA tenderness, No vertebral tenderness Hips Exam: bilateral: non-tender, normal inspection, normal range of motion, no evidence of injury Legs Exam: bilateral leg: non-tender, normal inspection, normal range of motion, no evidence of injury Knees Exam: right knee: joint effusion (Right anterior), pain (Right anterior), soft tissue tenderness (Right anterior), swelling (Right anterior), other (Right patellar subluxation), left knee: non-tender, normal inspection, normal range of motion, no evidence of injury Ankle Exam: bilateral ankle: non-tender, normal inspection, normal range of motion, no evidence of injury Foot Exam: bilateral foot: non-tender, normal inspection, normal range of motion, no evidence of injury Neuro/Tendon Exam: normal sensation, normal motor functions, normal tendon functions Mental Status Exam: alert, oriented x 3, cooperative Skin Exam: normal color, warm, dry SpO2 Interpretation: normal O2 Delivery: Room Air Procedures - Joint Reduction Time of Procedure: 01:45 Joint Reduction Site: Right, patella Conscious Sedation: No Reduction Attempts: 1 Pre-Procedure Neurovascular Exam: neurovascular intact, well perfused, no neuro deficit Post Procedure Neurovascular Exam: neurovascular intact, good alignment, unchanged from pre-exam Post Joint Reduction Film: Patellar subluxation successfully reduced Progress: Patient tolerated the procedure well. There were no complications. Ordered Tests: Active Orders 24 hr Category Date Time Status IV Insertion STAT Care 09/20/21 00:53 Active KNEE (1 OR 2 VIEW) Stat Exams 09/20/21 00:55 Taken CBC W DIFF Stat Lab 09/20/21 01:00 Completed CMP Stat Lab 09/20/21 01:00 Completed Medication Summary Discontinued Medications Generic Name Dose Route Start Last Admin Trade Name Freq PRN Reason Stop Dose Admin Hydromorphone HCl 1 mg 09/20/21 00:53 09/20/21 00:58 Hydromorphone 1 Mg/1ml Inj 1 Mg/Ml Syringe IV 09/20/21 00:54 1 mg STAT ONE Administration Hydromorphone HCl Confirm 09/20/21 00:57 Hydromorphone 1 Mg/1ml Inj 1 Mg/Ml Syringe Administered 09/20/21 00:58 Dose 1 mg .ROUTE .STK-MED ONE Hydromorphone HCl 1 mg 09/20/21 01:11 09/20/21 01:39 Hydromorphone 1 Mg/1ml Inj 1 Mg/Ml Syringe IV 09/20/21 01:12 1 mg STAT ONE Administration Hydromorphone HCl Confirm 09/20/21 01:13 Hydromorphone 1 Mg/1ml Inj 1 Mg/Ml Syringe Administered 09/20/21 01:14 Dose 1 mg .ROUTE .STK-MED ONE Lorazepam 0.5 mg 09/20/21 01:12 09/20/21 01:39 Lorazepam 2 Mg/1 Ml 2 Mg Vial IV 09/20/21 01:13 0.5 mg STAT ONE Administration Lorazepam Confirm 09/20/21 01:12 Lorazepam 2 Mg/1 Ml 2 Mg Vial Administered 09/20/21 01:13 Dose 2 mg .ROUTE .STK-MED ONE Ondansetron HCl 4 mg 09/20/21 00:53 09/20/21 00:57 Ondansetron Hcl 4 Mg/2 Ml Vial IV 09/20/21 00:54 4 mg STAT ONE Administration Ondansetron HCl Confirm 09/20/21 00:57 Ondansetron Hcl 4 Mg/2 Ml Vial Administered 09/20/21 00:58 Dose 4 mg .ROUTE .STK-MED ONE Lab/Rad Data: Laboratory Result Diagrams 09/20/21 01:00 09/20/21 01:00 Laboratory Results 09/20/21 09/20/21 Range/Units 01:00 01:00 WBC 7.2 (4.0-10.5) x10^3/uL RBC 4.11 (4.1-5.4) x10^6/uL Hgb 10.1 L (12.0-16.0) g/dL Hct 32.2 L (35-47) % MCV 78.3 (78-100) fL MCH 24.6 L (26-32) pg MCHC 31.4 L (32-36) g/dL RDW 15.6 H (11.5-14.0) % Plt Count 350 (150-450) x10^3/uL MPV 9.6 (7.5-11.0) fL Gran % 50.8 (36.0-66.0) % Immature Gran % (Auto) 0.3 (0.00-0.4) % Nucleat RBC Rel Count 0.0 (0.00-0.1) % Eos # (Auto) 0.49 (0-0.5) x10^3/uL Immature Gran # (Auto) 0.02 (0.00-0.03) x10^3u/L Absolute Lymphs (auto) 2.57 (1.0-4.6) x10^3/uL Absolute Monos (auto) 0.38 (0.0-1.3) x10^3/uL Absolute Nucleated RBC 0.00 (0.00-0.01) x10^3u/L Lymphocytes % 35.7 (24.0-44.0) % Monocytes % 5.3 (0.0-12.0) % Eosinophils % 6.8 H (0.00-5.0) % Basophils % 1.1 (0.0-0.4) % Absolute Granulocytes 3.66 (1.4-6.9) x10^3/uL Basophils # 0.08 (0-0.4) x10^3/uL Sodium 136 L (137-145) mmol/L Potassium 3.5 (3.5-5.1) mmol/L Chloride 100 (98-107) mmol/L Carbon Dioxide 28 (22-30) mmol/L Anion Gap 11.8 (5-15) MEQ/L BUN 13 (7-17) mg/dL Creatinine 0.70 (0.52-1.04) mg/dL Estimated GFR > 60.0 ML/MIN Glucose 103 (74-106) mg/dL Calcium 9.7 (8.4-10.2) mg/dL Total Bilirubin 0.30 (0.2-1.3) mg/dL AST 29 (14-36) U/L ALT 21 (0-35) U/L Alkaline Phosphatase 67 (38-126) U/L Serum Total Protein 7.5 (6.3-8.2) g/dL Albumin 4.2 (3.5-5.0) g/dL - Progress Progress: improved, pain not gone completely, re-examined Progress Note: 09/20/21 01:53 X-ray of right knee shows a patellar subluxation. The knee replacement/arthroplasty hardware appears to be intact. There is no evidence of any fractures. There is a large right knee joint effusion. Once the patient's pain was under better control and she is more relaxed, the right patella dislocation appeared to spontaneously locate back in its appropriate, anatomic position. We then placed an Carmelo wrap around this right knee joint then use Coban to secure the Carmelo bandage. X-rays of right knee status post manual reduction of patellar subluxation radiographically shows successful reduction. Patient's pain significantly improved. Counseled pt/family regarding: lab results, diagnosis, need for follow-up, rad results - Departure Departure Disposition: Home Clinical Impression: Patellar subluxation Condition: Stable Critical Care Time: No Referrals: YELENA FREED MD [Primary Care Provider] - Follow up/PCP as directed Additional Instructions: Do not flex the right knee. May use walker to ambulate but keep the right lower extremity straight. May use ice pack to the anterior knee on the right side. May use your narcotic pain medicine you have at home to help with pain control. Keep your appointment with your orthopedic surgeon this morning.
[2021-09-20] MEDS ORDERED: Zofran 4 MG/2 ML VIAL ONE (00:57)
[2021-09-20] MEDS ORDERED: Hydromorphone 1 mg/ml Injection ONE ×2 (00:57→01:13)
[2021-09-20] MEDS ORDERED: Ativan 2 MG/1 ML VIAL ONE (01:12)
[2021-09-20] MEDS ORDERED: Ativan 2 MG/1 ML VIAL IV ONE (01:12)
[2021-09-20 01:21] LABS: Absolute Neutrophil Ct (ANC) 3.66 x10^3/uL (1.4-6.9); Basophil (Absolute #) 0.08 x10^3/uL (0-0.4); Eosinophil % 6.8 % (0.00-5.0); Eosinophil (Absolute #) 0.49 x10^3/uL (0-0.5); Hematocrit 32.2 % (35-47); Hemoglobin 10.1 g/dL (12.0-16.0); Lymphocyte (Absolute #) 2.57 x10^3/uL (1.0-4.6); Lymphocytes % 35.7 % (24.0-44.0); Mean Cell Volume 78.3 fL (78-100); Mean Corpuscular Hemoglobin 24.6 pg (26-32); Mean Corpuscular Hgb Concent. 31.4 g/dL (32-36); Mean Platelet Volume 9.6 fL (7.5-11.0); Monocyte (Absolute #) 0.38 x10^3/uL (0.0-1.3); Monocytes % 5.3 % (0.0-12.0); Neutrophil % 50.8 % (36.0-66.0); Platelet Count 350 x10^3/uL (150-450); Red Blood Count 4.11 x10^6/uL (4.1-5.4); Red Cell Distribution Width 15.6 % (11.5-14.0); White Blood Count 7.2 x10^3/uL (4.0-10.5)
[2021-09-20 01:32] LABS: ALBUMIN 4.2 g/dL (3.5-5.0); ALKALINE PHOSPHATASE 67 U/L (38-126); ANION GAP 11.8 MEQ/L (5-15); BLOOD UREA NITROGEN 13 mg/dL (7-17); CHLORIDE 100 mmol/L (98-107); Calcium 9.7 mg/dL (8.4-10.2); Carbon Dioxide 28 mmol/L (22-30); EST GLOMERULAR FILTRATION RATE > 60.0 ML/MIN; Glucose 103 mg/dL (74-106); Potassium 3.5 mmol/L (3.5-5.1); SGOT/AST 29 U/L (14-36); SGPT/ALT 21 U/L (0-35); SODIUM 136 mmol/L (137-145); Total Protein 7.5 g/dL (6.3-8.2)
[2021-09-20 02:09] VITALS: O2SAT 96
[2021-09-20 03:14] VITALS: BP 158/81; PULSE 69
--- NOTE | 2021-09-20 08:55 | XRAY ---
Indication: Post reduction. Comparison: Taken earlier in the day. AP/lateral right knee demonstrates successful reduction of patella dislocation with continued soft tissue swelling/effusion. Again incidental osteopenia, total knee arthroplasty, and posterior fabella.
--- NOTE | 2021-09-20 08:55 | XRAY ---
Indication: Pain following fall. Comparison: None AP/lateral right knee demonstrates patella dislocation laterally with soft tissue swelling and effusion. Remaining knee demonstrates mild osteopenia, total knee arthroplasty, and small posterior fabella. Comment: Preliminary interpretation made by [facility]. No critical discrepancy.
== END 2021-09-20 03:39 | disposition home or self-care (01) ==
LOC: ED 00:52
DX: S83.001A Unspecified subluxation of right patella, initial encounter (principal); X50.0XXA Overexertion from strenuous movement or load, initial encounter; Y93.01 Activity, walking, marching and hiking; Z96.651 Presence of right artificial knee joint; M25.561 Pain in right knee; M25.461 Effusion, right knee; E78.5 Hyperlipidemia, unspecified; E11.9 Type 2 diabetes mellitus without complications; I10 Essential (primary) hypertension; Z72.0 Tobacco use; Z79.84 Long term (current) use of oral hypoglycemic drugs; Z79.899 Other long term (current) drug therapy
CPT/HCPCS: 27599; 36000; 36415; 51702; 73560; 80053; 85025; 94799; 96374; 96375; 96376; 99284; J1170; J2060; J2405; L1830

== ENCOUNTER 2022-12-25 13:14 | Observation (INO) | payer SELFPAY ==
[2022-12-25] MEDS ORDERED: Zofran 4 MG/2 ML VIAL IV ONE (14:18)
[2022-12-25] MEDS ORDERED: Sodium Chloride 0.9% 1000 ML 1,000 ML IV STA (14:18)
[2022-12-25] MEDS ORDERED: Hydromorphone 1 mg/ml Injection IV ONE (14:18)
[2022-12-25] MEDS ORDERED: Hydromorphone 1 mg/ml Injection ONE (14:36)
[2022-12-25] MEDS ORDERED: Zofran 4 MG/2 ML VIAL ONE (14:36)
[2022-12-25] MEDS ORDERED: Sodium Chloride 0.9% 1000 ML 1,000 ML ONE ×2 (14:37→15:24)
[2022-12-25 15:00] LABS: Absolute Neutrophil Ct (ANC) 13.09 x10^3/uL (1.4-6.9); BASOPHIL % 0.2 % (0.0-0.4); Basophil (Absolute #) 0.03 x10^3/uL (0-0.4); Eosinophil (Absolute #) 0 x10^3/uL (0-0.5); Hemoglobin 14.8 g/dL (12.0-16.0); IMMATURE GRAN # 0.07 x10^3u/L (0.00-0.03); IMMATURE GRAN % 0.4 % (0.00-0.4); Lymphocyte (Absolute #) 1.89 x10^3/uL (1.0-4.6); Mean Cell Volume 80.1 fL (78-100); Mean Corpuscular Hemoglobin 26.3 pg (26-32); Mean Corpuscular Hgb Concent. 32.9 g/dL (32-36); Mean Platelet Volume 9.9 fL (7.5-11.0); Monocyte (Absolute #) 0.73 x10^3/uL (0.0-1.3); Monocytes % 4.6 % (0.0-12.0); Neutrophil % 82.8 % (36.0-66.0); Platelet Count 354 x10^3/uL (150-450); Red Blood Count 5.62 x10^6/uL (4.1-5.4); Red Cell Distribution Width 14.6 % (11.5-14.0); White Blood Count 15.8 x10^3/uL (4.0-10.5)
[2022-12-25 15:08] LABS: Appearance Clear (Clear); Bacteria None Seen /HPF (None Seen); Bilirubin Negative (Negative); Blood Trace (Negative); Epithelial Cells Rare /HPF (None Seen); Glucose, Urine Negative (Negative); Ketones Trace (Negative); Leukocyte Esterase Negative (Negative); Nitrite Negative (Negative); Protein,Urine Dip 300 (Negative); Specific Gravity 1.025 (1.005-1.030); WBC 0-2 /HPF (0-5)
[2022-12-25 15:11] LABS: ADD URINE CULTURE? YES (NO)
[2022-12-25 15:14] LABS: INR 1.05 (0.8-3.0); PROTIME 11.4 SECONDS (9.4-12.5)
[2022-12-25] MEDS ORDERED: SUBLIMAZE 100 MCG/2 ML IV ONE (15:23)
[2022-12-25] MEDS ORDERED: SUBLIMAZE 100 MCG/2 ML ONE (15:24)
[2022-12-25] MEDS: Sodium Chloride 0.9% 1000 ML 1,000 ML IV SCH ×3 (15:27→17:48)
[2022-12-25 15:38] LABS: INFLUENZA A NEGATIVE (NEGATIVE); INFLUENZA B NEGATIVE (NEGATIVE); RESPIRATORY SYNCTIAL VIRUS NEGATIVE (NEGATIVE); SARS-CoV-2 Xpert Express NEGATIVE (NEGATIVE)
[2022-12-25 15:54] LABS: ALKALINE PHOSPHATASE 77 U/L (38-126); AMYLASE 104 U/L (30-110); BLOOD UREA NITROGEN 18 mg/dL (7-17); CHLORIDE 94 mmol/L (98-107); Calcium 8.6 mg/dL (8.4-10.2); Carbon Dioxide 31 mmol/L (22-30); Creatinine 1 0.77 mg/dL (0.52-1.04); EST GLOMERULAR FILTRATION RATE > 60.0 ML/MIN; Glucose 112 mg/dL (74-106); LIPASE 737 U/L (23-300); SGOT/AST 28 U/L (14-36); SGPT/ALT 30 U/L (0-35); SODIUM 133 mmol/L (137-145)
--- NOTE | 2022-12-25 15:55 | XRAY ---
CLINICAL HISTORY:pain COMPARISON:None. TECHNIQUE:X-ray of the chest, AP views. FINDINGS: The cardiac shadow appears borderline enlarged. Mild prominent vascular markings mainly in lower lung zones. No major collapse or consolidation. No definite collapse or consolidation is seen. Normal configuration of the mediastinum. The trey are normal in size and position. Costophrenic and cardiophrenic angles are clear. Retrocardiac and retrosternal spaces are normal. Degenerative changes are seen in bilateral acromioclavicular joints. IMPRESSION: Mild cardiomegaly showing mild pulmonary vascular congestion. Further cardiac evaluation is recommended. Electronically Signed by: Vida Goins MD. (12/25/2022 14:52:56 [employer]ILING HOUSE [employer]ILER)
[2022-12-25 15:57] LABS: Potassium 3.1 mmol/L (3.5-5.1)
[2022-12-25 15:59] LABS: ANION GAP 11.1 MEQ/L (5-15)
--- NOTE | 2022-12-25 17:14 | ERPHSYRPT ---
- History of Present Illness Time Seen by Provider: 12/25/22 13:30 Historian: patient Exam Limitations: no limitations Patient Subjective Stated Complaint: PT states "I have been vomiting since yesterday and my head is killing me." Triage Nursing Assessment: Pt presented alert and oriented X 3, skin pwd. Pt ambulates with a slow gait. Pt moaning and holding a trash can. PT in no apparent respiratory distress. Physician History: Patient is [id number] white female who started yesterday with a severe headache nausea vomiting and diarrhea and fever as well as abdominal pain. She does have a history of diverticulitis. Timing/Duration: yesterday Activities at Onset: none Quality: cramping Abdominal Pain Onset Location: generalized abdomen Pain Radiation: LLQ Severity of Pain-Max: moderate Severity of Pain-Current: moderate Modifying Factors: Improves With: vomiting Associated Symptoms: diarrhea, headache, nausea, vomiting, weakness Allergies/Adverse Reactions: No Known Drug Allergies Allergy (Verified 09/20/21 01:46) Home Medications: Gabapentin [Neurontin] 300 mg PO HS 02/12/21 [History] Pramipexole Di-HCl [Mirapex] 1 mg PO HS 02/12/21 [History] Hx Tetanus, Diphtheria Vaccination/Date Given: Yes Hx Influenza Vaccination/Date Given: Yes Hx Pneumococcal Vaccination/Date Given: No Immunizations Up to Date: No Travel Risk - International Travel Have you traveled outside of the country in past 3 weeks: No - Coronavirus Screening Are you exhibiting any of the following symptoms?: Yes Symptoms: Fever, Vomiting/Diarrhea, Headaches/Body Aches/Fatigue Close contact with a COVID-19 positive Pt in past 14-21 Days: No - Vaccine Status Have you recieved a Covid-19 vaccination: Yes Window Decorator: [employer] - Vaccination Dates Date of 2cond Vaccination (if applicable): 07/26/2020 - Review of Systems Constitutional: No Fever, No Chills Eyes: No Symptoms Ears, Nose, & Throat: No Symptoms Respiratory: No Cough, No Dyspnea Cardiac: No Chest Pain, No Edema, No Syncope Abdominal/Gastrointestinal: Abdominal Pain, Nausea, Vomiting, Diarrhea Genitourinary Symptoms: No Dysuria Musculoskeletal: No Back Pain, No Neck Pain Skin: No Rash Neurological: No Dizziness, No Focal Weakness, No Sensory Changes Psychological: No Symptoms Endocrine: No Symptoms All Other Systems: Reviewed and Negative - Past Medical History Pertinent Past Medical History: Yes Neurological History: No Pertinent History ENT History: No Pertinent History Cardiac History: High Cholesterol, Hypertension Respiratory History: No Pertinent History Endocrine Medical History: Diabetes Type II GI Medical History: No Pertinent History History: No Pertinent History Psycho-Social History: Anxiety, Depression Female Reproductive Disorders: No Pertinent History Other Medical History: restless leg syndrome, anemia - Past Surgical History Past Surgical History: Yes Neuro Surgical History: No Pertinent History Cardiac: No Pertinent History Respiratory: No Pertinent History Gastrointestinal: No Pertinent History Genitourinary: No Pertinent History Musculoskeletal: Orthopedic Surgery Female Surgical History: Hysterectomy Other Surgical History: ankle ,knee - Social History Smoking Status: Current some day smoker How long have you smoked: years Exposure to second hand smoke: Yes Drug Use: none Patient Lives Alone: Yes - Nursing Vital Signs Nursing Vital Signs: Initial Vital Signs Temperature 98.2 F 12/25/22 13:24 Pulse Rate 80 12/25/22 13:24 Respiratory Rate 24 12/25/22 13:24 Blood Pressure 126/90 12/25/22 13:24 O2 Sat by Pulse Oximetry 96 12/25/22 13:24 Pain Scale Pain Intensity 4 - Physical Exam General Appearance: moderate distress, alert Eye Exam: PERRL/EOMI, eyes nml inspection Ears, Nose, Throat Exam: normal ENT inspection, pharynx normal, moist mucous membranes Neck Exam: normal inspection, non-tender, supple, full range of motion Respiratory Exam: normal breath sounds, lungs clear, No respiratory distress Cardiovascular Exam: regular rate/rhythm, normal heart sounds Gastrointestinal/Abdomen Exam: normal bowel sounds, tenderness, guarding, No m ass Back Exam: normal inspection, normal range of motion, No CVA tenderness, No vertebral tenderness Extremity Exam: normal inspection, normal range of motion, pelvis stable Neurologic Exam: alert, oriented x 3, cooperative, normal mood/affect, nml cerebellar function, sensation nml, No motor deficits Skin Exam: normal color, warm, dry SpO2 Interpretation: normal SpO2: 88 O2 Delivery: Room Air - Course Nursing assessment & vital signs reviewed: Yes EKG Interpreted by Me: RATE (78), Sinus Rhythm, NORMAL AXIS, NORMAL INTERVALS, NORMAL ST-T - Radiology Exams Chest X-ray Interpretation: Reviewed by me - CT Exams Abdomen/Pelvis CT Interpretation: Tele-radiologist Report Ordered Tests: Active Orders 24 hr Category Date Time Status EKG-ER Only STAT Care 12/25/22 14:18 Active IV Insertion STAT Care 12/25/22 14:18 Active ABDOMEN AND PELVIS W CONTRAST [CT] Stat Exams 12/25/22 14:18 Completed CHEST 1 VIEW (PORTABLE) Stat Exams 12/25/22 15:13 Completed AMYLASE Stat Lab 12/25/22 13:48 Completed CBC W DIFF Stat Lab 12/25/22 13:48 Completed CMP Stat Lab 12/25/22 13:48 Completed CULTURE,URINE Stat Lab 12/25/22 13:48 Received LIPASE Stat Lab 12/25/22 13:48 Completed Lactic Acid Stat Lab 12/25/22 14:36 Completed PROTIME WITH INR Stat Lab 12/25/22 13:48 Completed TROPONIN Q4H Lab 12/25/22 13:48 Completed TROPONIN Q4H Lab 12/25/22 18:30 Ordered TROPONIN Q4H Lab 12/25/22 22:30 Ordered UA W/RFX UR CULTURE Stat Lab 12/25/22 13:48 Completed Medication Summary Generic Name Dose Route Start Last Admin Trade Name Freq PRN Reason Stop Dose Admin Sodium Chloride 1,000 mls @ 999 mls/hr 12/25/22 15:30 12/25/22 17:48 Sodium Chloride 0.9% 1000 Ml IV 01/24/23 15:29 Not Given .Q1H1M RENAE Discontinued Medications Generic Name Dose Route Start Last Admin Trade Name Freq PRN Reason Stop Dose Admin Fentanyl Citrate 100 mcg 12/25/22 15:23 12/25/22 15:26 Fentanyl Citrate 100 Mcg/2 Ml* Vial IV 12/25/22 15:24 100 mcg STAT ONE Administration Fentanyl Citrate Confirm 12/25/22 15:24 Fentanyl Citrate 100 Mcg/2 Ml* Vial Administered 12/25/22 15:25 Dose 100 mcg .ROUTE .STK-MED ONE Hydromorphone HCl 0.5 mg 12/25/22 14:18 12/25/22 14:38 Hydromorphone 1 Mg/1ml Inj IV 12/25/22 14:19 1 mg STAT ONE Administration Hydromorphone HCl Confirm 12/25/22 14:36 Hydromorphone 1 Mg/1ml Inj Administered 12/25/22 14:37 Dose 1 mg .ROUTE .STK-MED ONE Sodium Chloride 1,000 mls @ 999 mls/hr 12/25/22 14:18 12/25/22 15:45 Sodium Chloride 0.9% 1000 Ml IV 12/25/22 15:18 Infused .Q1H1M STA Infusion Sodium Chloride Confirm 12/25/22 14:37 Sodium Chloride 0.9% 1000 Ml Administered 12/25/22 14:38 Dose 1,000 mls @ ud .ROUTE .STK-MED ONE Sodium Chloride Confirm 12/25/22 15:24 Sodium Chloride 0.9% 1000 Ml Administered 12/25/22 15:25 Dose 1,000 mls @ ud .ROUTE .STK-MED ONE Ondansetron HCl 4 mg 12/25/22 14:18 12/25/22 14:38 Ondansetron Hcl 4 Mg/2 Ml Vial IV 12/25/22 14:19 4 mg STAT ONE Administration Ondansetron HCl Confirm 12/25/22 14:36 Ondansetron Hcl 4 Mg/2 Ml Vial Administered 12/25/22 14:37 Dose 4 mg .ROUTE .STK-MED ONE Lab/Rad Data: Laboratory Result Diagrams 12/25/22 13:48 12/25/22 13:48 Laboratory Results 12/25/22 12/25/22 12/25/22 Range/Units 14:45 14:36 13:48 WBC (4.0-10.5) x10^3/uL RBC (4.1-5.4) x10^6/uL Hgb (12.0-16.0) g/dL Hct (35-47) % MCV (78-100) fL MCH (26-32) pg MCHC (32-36) g/dL RDW (11.5-14.0) % Plt Count (150-450) x10^3/uL MPV (7.5-11.0) fL Gran % (36.0-66.0) % Immature Gran % (Auto) (0.00-0.4) % Nucleat RBC Rel Count (0.00-0.1) % Eos # (Auto) (0-0.5) x10^3/uL Immature Gran # (Auto) (0.00-0.03) x10^3u/L Absolute Lymphs (auto) (1.0-4.6) x10^3/uL Absolute Monos (auto) (0.0-1.3) x10^3/uL Absolute Nucleated RBC (0.00-0.01) x10^3u/L Lymphocytes % (24.0-44.0) % Monocytes % (0.0-12.0) % Eosinophils % (0.00-5.0) % Basophils % (0.0-0.4) % Absolute Granulocytes (1.4-6.9) x10^3/uL Basophils # (0-0.4) x10^3/uL PT (9.4-12.5) SECONDS INR (0.8-3.0) Sodium (137-145) mmol/L Potassium (3.5-5.1) mmol/L Chloride (98-107) mmol/L Carbon Dioxide (22-30) mmol/L Anion Gap (5-15) MEQ/L BUN (7-17) mg/dL Creatinine (0.52-1.04) mg/dL Estimated GFR ML/MIN Glucose (74-106) mg/dL Lactic Acid 1.5 (0.4-2.0) Calcium (8.4-10.2) mg/dL Total Bilirubin (0.2-1.3) mg/dL AST (14-36) U/L ALT (0-35) U/L Alkaline Phosphatase (38-126) U/L Troponin I 0.019 (0.000-0.034) ng/mL Serum Total Protein (6.3-8.2) g/dL Albumin (3.5-5.0) g/dL Amylase (30-110) U/L Lipase (23-300) U/L Urine Color (Yellow) Urine Appearance (Clear) Urine pH (4.6-8.0) Ur Specific [place] (1.005-1.030) Urine Protein (Negative) Urine Glucose (UA) (Negative) mg/dL Urine Ketones (Negative) Urine Blood (Negative) Urine Nitrite (Negative) Urine Bilirubin (Negative) Urine Urobilinogen (0.2) mg/dL Ur Leukocyte Esterase (Negative) U Hyaline Cast (Auto) (0-2) /LPF Urine Microscopic RBC (0-5) /HPF Urine Microscopic WBC (0-5) /HPF Ur Epithelial Cells (None Seen) /HPF Urine Bacteria (None Seen) /HPF Urine Culture Reflexed (NO) Influenza Type A Ag NEGATIVE (NEGATIVE) Influenza Type B Ag NEGATIVE (NEGATIVE) RSV (PCR) NEGATIVE (NEGATIVE) SARS-CoV-2 (PCR) NEGATIVE (NEGATIVE) 12/25/22 12/25/22 12/25/22 Range/Units 13:48 13:48 13:48 WBC 15.8 H (4.0-10.5) x10^3/uL RBC 5.62 H (4.1-5.4) x10^6/uL Hgb 14.8 (12.0-16.0) g/dL Hct 45.0 (35-47) % MCV 80.1 (78-100) fL MCH 26.3 (26-32) pg MCHC 32.9 (32-36) g/dL RDW 14.6 H (11.5-14.0) % Plt Count 354 (150-450) x10^3/uL MPV 9.9 (7.5-11.0) fL Gran % 82.8 H (36.0-66.0) % Immature Gran % (Auto) 0.4 (0.00-0.4) % Nucleat RBC Rel Count 0.0 (0.00-0.1) % Eos # (Auto) 0 (0-0.5) x10^3/uL Immature Gran # (Auto) 0.07 H (0.00-0.03) x10^3u/L Absolute Lymphs (auto) 1.89 (1.0-4.6) x10^3/uL Absolute Monos (auto) 0.73 (0.0-1.3) x10^3/uL Absolute Nucleated RBC 0.00 (0.00-0.01) x10^3u/L Lymphocytes % 12.0 L (24.0-44.0) % Monocytes % 4.6 (0.0-12.0) % Eosinophils % 0.0 (0.00-5.0) % Basophils % 0.2 (0.0-0.4) % Absolute Granulocytes 13.09 H (1.4-6.9) x10^3/uL Basophils # 0.03 (0-0.4) x10^3/uL PT 11.4 (9.4-12.5) SECONDS INR 1.05 (0.8-3.0) Sodium 133 L (137-145) mmol/L Potassium 3.1 L (3.5-5.1) mmol/L Chloride 94 L (98-107) mmol/L Carbon Dioxide 31 H (22-30) mmol/L Anion Gap 11.1 (5-15) MEQ/L BUN 18 H (7-17) mg/dL Creatinine 0.77 (0.52-1.04) mg/dL Estimated GFR > 60.0 ML/MIN Glucose 112 H (74-106) mg/dL Lactic Acid (0.4-2.0) Calcium 8.6 (8.4-10.2) mg/dL Total Bilirubin 0.40 (0.2-1.3) mg/dL AST 28 (14-36) U/L ALT 30 (0-35) U/L Alkaline Phosphatase 77 (38-126) U/L Troponin I (0.000-0.034) ng/mL Serum Total Protein 7.0 (6.3-8.2) g/dL Albumin 4.0 (3.5-5.0) g/dL Amylase 104 (30-110) U/L Lipase 737 H (23-300) U/L Urine Color (Yellow) Urine Appearance (Clear) Urine pH (4.6-8.0) Ur Specific [place] (1.005-1.030) Urine Protein (Negative) Urine Glucose (UA) (Negative) mg/dL Urine Ketones (Negative) Urine Blood (Negative) Urine Nitrite (Negative) Urine Bilirubin (Negative) Urine Urobilinogen (0.2) mg/dL Ur Leukocyte Esterase (Negative) U Hyaline Cast (Auto) (0-2) /LPF Urine Microscopic RBC (0-5) /HPF Urine Microscopic WBC (0-5) /HPF Ur Epithelial Cells (None Seen) /HPF Urine Bacteria (None Seen) /HPF Urine Culture Reflexed (NO) Influenza Type A Ag (NEGATIVE) Influenza Type B Ag (NEGATIVE) RSV (PCR) (NEGATIVE) SARS-CoV-2 (PCR) (NEGATIVE) 12/25/22 Range/Units 13:48 WBC (4.0-10.5) x10^3/uL RBC (4.1-5.4) x10^6/uL Hgb (12.0-16.0) g/dL Hct (35-47) % MCV (78-100) fL MCH (26-32) pg MCHC (32-36) g/dL RDW (11.5-14.0) % Plt Count (150-450) x10^3/uL MPV (7.5-11.0) fL Gran % (36.0-66.0) % Immature Gran % (Auto) (0.00-0.4) % Nucleat RBC Rel Count (0.00-0.1) % Eos # (Auto) (0-0.5) x10^3/uL Immature Gran # (Auto) (0.00-0.03) x10^3u/L Absolute Lymphs (auto) (1.0-4.6) x10^3/uL Absolute Monos (auto) (0.0-1.3) x10^3/uL Absolute Nucleated RBC (0.00-0.01) x10^3u/L Lymphocytes % (24.0-44.0) % Monocytes % (0.0-12.0) % Eosinophils % (0.00-5.0) % Basophils % (0.0-0.4) % Absolute Granulocytes (1.4-6.9) x10^3/uL Basophils # (0-0.4) x10^3/uL PT (9.4-12.5) SECONDS INR (0.8-3.0) Sodium (137-145) mmol/L Potassium (3.5-5.1) mmol/L Chloride (98-107) mmol/L Carbon Dioxide (22-30) mmol/L Anion Gap (5-15) MEQ/L BUN (7-17) mg/dL Creatinine (0.52-1.04) mg/dL Estimated GFR ML/MIN Glucose (74-106) mg/dL Lactic Acid (0.4-2.0) Calcium (8.4-10.2) mg/dL Total Bilirubin (0.2-1.3) mg/dL AST (14-36) U/L ALT (0-35) U/L Alkaline Phosphatase (38-126) U/L Troponin I (0.000-0.034) ng/mL Serum Total Protein (6.3-8.2) g/dL Albumin (3.5-5.0) g/dL Amylase (30-110) U/L Lipase (23-300) U/L Urine Color Yellow (Yellow) Urine Appearance Clear (Clear) Urine pH 7.0 (4.6-8.0) Ur Specific [place] 1.025 (1.005-1.030) Urine Protein 300 A (Negative) Urine Glucose (UA) Negative (Negative) mg/dL Urine Ketones Trace A (Negative) Urine Blood Trace (Negative) Urine Nitrite Negative (Negative) Urine Bilirubin Negative (Negative) Urine Urobilinogen 1.0 A (0.2) mg/dL Ur Leukocyte Esterase Negative (Negative) U Hyaline Cast (Auto) 3-5 A (0-2) /LPF Urine Microscopic RBC 11-20 A (0-5) /HPF Urine Microscopic WBC 0-2 (0-5) /HPF Ur Epithelial Cells Rare (None Seen) /HPF Urine Bacteria None Seen (None Seen) /HPF Urine Culture Reflexed YES (NO) Influenza Type A Ag (NEGATIVE) Influenza Type B Ag (NEGATIVE) RSV (PCR) (NEGATIVE) SARS-CoV-2 (PCR) (NEGATIVE) - Progress Progress: improved Medical Desision Making - Independent Historian Additional History obtained from: Spouse - Discussion of managment Care discussed with:: hospitalist (Dr Brasher) Reviewed:: Test results Agreed on:: Treatment plan, decision to admit Will see patient: in hospital - Diagnostic Testing Diagnostic test were ordered, analyzed, and reviewed by me: Yes Radiological Interpretation: Reviewed by me - Risk of complications The pt has a mod risk of morbidity or mortality based on: Need for prescription drug management, Need for minor surgical intervention in patient with know risk factors - Departure Departure Disposition: Observation Clinical Impression: Diverticulitis, Abdominal pain, Leukocytosis, Elevated lipase Condition: Fair Critical Care Time: No Referrals: DUARTE BURTON SALES OFFICER [Primary Care Provider] - Follow up/PCP as directed
--- NOTE | 2022-12-25 17:43 | XRAY ---
CLINICAL HISTORY:pain COMPARISON:. TECHNIQUE:A CT scan of the abdomen and pelvis was performed with IV contrast. No oral contrast. Coronal and sagittal reconstructive images were also obtained. FINDINGS: A scan through the lower chest reveals an unremarkable lung basis and heart. Abdomen: The liver is of average size and measures 16 cm. No focal or diffuse parenchymal abnormality. The portal vein, intrahepatic biliary radicals, and the bile ducts are normal. The gallbladder is distended and shows no definite stones. There is no evidence of wall thickening/ pericholecystic collection. The spleen, pancreas, and adrenal glands are unremarkable. The kidneys are unremarkable. They are normal in size and shape. No calculi or hydronephrosis. The ascending colon, the transverse colon, the descending colon, visualized small bowel loops are unremarkable. There is no evidence of significant enlargement of the mesenteric or retroperitoneal lymph nodes. Diffuse colonic non-complicated diverticulosis, more evident at the sigmoid colon. Pelvis: The urinary bladder is unremarkable. The pelvic vasculature is unremarkable. No evidence of pelvic lymphadenopathy. No definite bony abnormalities could be depicted. IMPRESSION: 1. Colonic diverticulosis (newly developed as compared to the previous study). 2. Otherwise unremarkable CT study. Electronically Signed by: Vida Goins MD. (12/25/2022 16:42:27 [employer])
[2022-12-25] MEDS ORDERED: Zofran 4 MG/2 ML VIAL IV PRN (20:07)
[2022-12-25] MEDS ORDERED: MILK OF MAGNESIA 30 ML PO PRN (20:07)
[2022-12-25] MEDS ORDERED: DUONEB 0.5-3 MG/3 ml Neb IH PRN (20:07)
[2022-12-25] MEDS ORDERED: TYLENOL 325 MG PO PRN (20:07)
[2022-12-25] MEDS ORDERED: NICODERM CQ 14 MG TOP SCH (20:15)
--- NOTE | 2022-12-25 20:16 | PCM.HP ---
History of Present Illness - Chief Complaint Chief Complaint: Diverticulitis Date: 12/25/22 History of Present Illness: This is a 62-year-old female admitted to the hospital for treatment of abdominal pain. She has past medical history of diverticulosis, restless leg syndrome. She reported 1 day of headache, nausea, vomiting, diarrhea and abdominal pain. Pain is in the lower abdominal she describes as intermittent, and sharp associated w/ vomiting and diarrhea. On arrival she was afebrile, heart rate 80, respiratory rate 24, blood pressure 126/90. Labs significant for WBC of 15, hemoglobin 14, platelets 354, sodium 133, potassium 3.1, CO2 31, creatinine 0.77 , lipase 737, UA negative for infection, flu, RSV, COVID all negative. CT abdomen pelvis showed diverticulosis but was otherwise unremarkable. Chest x- ray showed mild cardiomegaly and mild pulmonary vascular congestion. In the ER she was given fentanyl, Dilaudid, Zofran, IV fluids. She reports symptoms have improved. - Review of Systems Eyes: No Symptoms Ears, Nose, & Throat: No Symptoms Respiratory: No Symptoms Cardiac: No Symptoms Abdominal/Gastrointestinal: Abdominal Pain, Nausea, Vomiting, Diarrhea Genitourinary Symptoms: No Symptoms Musculoskeletal: No Symptoms Skin: No Symptoms Neurological: No Symptoms Psychological: No Symptoms Endocrine: No Symptoms Hematologic/Lymphatic: No Symptoms Immunological/Allergic: No Symptoms Medications & Allergies Home Medications: Home Medication List Gabapentin [Neurontin] 300 mg PO HS 02/12/21 [History Confirmed 12/25/22] Pramipexole Di-HCl [Mirapex] 1 mg PO HS 02/12/21 [History Confirmed 12/25/22] Allergies/Adverse Reactions: Allergies Allergy/AdvReac Type Severity Reaction Status Date / Time No Known Drug Allergies Allergy Verified 09/20/21 01:46 - Past Medical History Past Medical History: Yes Neurological History: No Pertinent History ENT History: No Pertinent History Cardiac History: High Cholesterol, Hypertension Respiratory History: No Pertinent History Endocrine Medical History: Diabetes Type II GI Medical History: No Pertinent History History: No Pertinent History Pyscho-Social History: Anxiety, Depression Reproductive Disorders: No Pertinent History Comment: restless leg syndrome, anemia - Female History Are you now?: No - Past Surgical History Past Surgical History: Yes Neuro Surgical History: No Pertinent History Cardiac History: No Pertinent History Respiratory Surgery: No Pertinent History GI Surgical History: No Pertinent History Genitourinary Surgical Hx: No Pertinent History Musculskeletal Surgical Hx: Orthopedic Surgery Female Surgical History: Hysterectomy Other Surgical History: ankle ,knee - Social History Smoking Status: Former smoker How long have you smoked: years Exposure to second hand smoke: Yes Alcohol: None Drug Use: none - Physical Exam Vital Signs: Vital Signs - 24 hr Temp Pulse Resp BP BP Pulse Ox 12/25/22 20:01 70 20 93 L 12/25/22 18:41 97.1 F 58 L 16 162/75 96 12/25/22 18:32 97.1 F 58 L 16 162/75 96 12/25/22 18:13 88 L 12/25/22 18:00 74 25 H 137/78 93 L 12/25/22 17:45 64 13 123/53 93 L 12/25/22 17:30 70 24 114/70 93 L 12/25/22 17:15 63 13 104/61 92 L 12/25/22 17:00 67 16 121/65 95 12/25/22 16:45 74 10 L 110/56 93 L 12/25/22 16:30 64 21 118/62 93 L 12/25/22 16:15 69 15 108/45 88 L 12/25/22 16:00 62 12 110/52 88 L 12/25/22 15:46 58 L 16 117/68 90 L 12/25/22 15:30 81 22 120/56 91 L 12/25/22 15:00 65 9 L 99/69 99/69 95 12/25/22 14:45 63 10 L 116/68 92 L 12/25/22 14:34 79 15 122/74 95 12/25/22 14:33 72 14 96 12/25/22 14:18 65 14 116/68 95 12/25/22 14:00 73 111/73 12/25/22 13:52 81 14 118/67 94 L 12/25/22 13:24 98.2 F 77 16 126/90 126/90 94 L General Appearance: no apparent distress Neurologic Exam: alert, oriented x 3 Eye Exam: PERRL/EOMI Ears, Nose, Throat Exam: normal ENT inspection Neck Exam: normal inspection Respiratory Exam: normal breath sounds Cardiovascular Exam: regular rate/rhythm, normal heart sounds Gastrointestinal/Abdomen Exam: soft, normal bowel sounds, No tenderness Extremity Exam: normal inspection Skin Exam: normal color, warm, dry Results - Labs Lab/Micro Results: Lab Results-Last 24 Hours 12/25/22 12/25/22 12/25/22 Range/Units 13:48 13:48 13:48 WBC 15.8 H (4.0-10.5) x10^3/uL RBC 5.62 H (4.1-5.4) x10^6/uL Hgb 14.8 (12.0-16.0) g/dL Hct 45.0 (35-47) % MCV 80.1 (78-100) fL MCH 26.3 (26-32) pg MCHC 32.9 (32-36) g/dL RDW 14.6 H (11.5-14.0) % Plt Count 354 (150-450) x10^3/uL MPV 9.9 (7.5-11.0) fL Gran % 82.8 H (36.0-66.0) % Immature Gran % (Auto) 0.4 (0.00-0.4) % Nucleat RBC Rel Count 0.0 (0.00-0.1) % Eos # (Auto) 0 (0-0.5) x10^3/uL Immature Gran # (Auto) 0.07 H (0.00-0.03) x10^3u/L Absolute Lymphs (auto) 1.89 (1.0-4.6) x10^3/uL Absolute Monos (auto) 0.73 (0.0-1.3) x10^3/uL Absolute Nucleated RBC 0.00 (0.00-0.01) x10^3u/L Lymphocytes % 12.0 L (24.0-44.0) % Monocytes % 4.6 (0.0-12.0) % Eosinophils % 0.0 (0.00-5.0) % Basophils % 0.2 (0.0-0.4) % Absolute Granulocytes 13.09 H (1.4-6.9) x10^3/uL Basophils # 0.03 (0-0.4) x10^3/uL PT (9.4-12.5) SECONDS INR (0.8-3.0) Sodium 133 L (137-145) mmol/L Potassium 3.1 L (3.5-5.1) mmol/L Chloride 94 L (98-107) mmol/L Carbon Dioxide 31 H (22-30) mmol/L Anion Gap 11.1 (5-15) MEQ/L BUN 18 H (7-17) mg/dL Creatinine 0.77 (0.52-1.04) mg/dL Estimated GFR > 60.0 ML/MIN Glucose 112 H (74-106) mg/dL Lactic Acid (0.4-2.0) Calcium 8.6 (8.4-10.2) mg/dL Total Bilirubin 0.40 (0.2-1.3) mg/dL AST 28 (14-36) U/L ALT 30 (0-35) U/L Alkaline Phosphatase 77 (38-126) U/L Troponin I (0.000-0.034) ng/mL Serum Total Protein 7.0 (6.3-8.2) g/dL Albumin 4.0 (3.5-5.0) g/dL Amylase 104 (30-110) U/L Lipase 737 H (23-300) U/L Urine Color Yellow (Yellow) Urine Appearance Clear (Clear) Urine pH 7.0 (4.6-8.0) Ur Specific [place] 1.025 (1.005-1.030) Urine Protein 300 A (Negative) Urine Glucose (UA) Negative (Negative) mg/dL Urine Ketones Trace A (Negative) Urine Blood Trace (Negative) Urine Nitrite Negative (Negative) Urine Bilirubin Negative (Negative) Urine Urobilinogen 1.0 A (0.2) mg/dL Ur Leukocyte Esterase Negative (Negative) U Hyaline Cast (Auto) 3-5 A (0-2) /LPF Urine Microscopic RBC 11-20 A (0-5) /HPF Urine Microscopic WBC 0-2 (0-5) /HPF Ur Epithelial Cells Rare (None Seen) /HPF Urine Bacteria None Seen (None Seen) /HPF Urine Culture Reflexed YES (NO) Influenza Type A Ag (NEGATIVE) Influenza Type B Ag (NEGATIVE) RSV (PCR) (NEGATIVE) SARS-CoV-2 (PCR) (NEGATIVE) 12/25/22 12/25/22 12/25/22 Range/Units 13:48 13:48 14:36 WBC (4.0-10.5) x10^3/uL RBC (4.1-5.4) x10^6/uL Hgb (12.0-16.0) g/dL Hct (35-47) % MCV (78-100) fL MCH (26-32) pg MCHC (32-36) g/dL RDW (11.5-14.0) % Plt Count (150-450) x10^3/uL MPV (7.5-11.0) fL Gran % (36.0-66.0) % Immature Gran % (Auto) (0.00-0.4) % Nucleat RBC Rel Count (0.00-0.1) % Eos # (Auto) (0-0.5) x10^3/uL Immature Gran # (Auto) (0.00-0.03) x10^3u/L Absolute Lymphs (auto) (1.0-4.6) x10^3/uL Absolute Monos (auto) (0.0-1.3) x10^3/uL Absolute Nucleated RBC (0.00-0.01) x10^3u/L Lymphocytes % (24.0-44.0) % Monocytes % (0.0-12.0) % Eosinophils % (0.00-5.0) % Basophils % (0.0-0.4) % Absolute Granulocytes (1.4-6.9) x10^3/uL Basophils # (0-0.4) x10^3/uL PT 11.4 (9.4-12.5) SECONDS INR 1.05 (0.8-3.0) Sodium (137-145) mmol/L Potassium (3.5-5.1) mmol/L Chloride (98-107) mmol/L Carbon Dioxide (22-30) mmol/L Anion Gap (5-15) MEQ/L BUN (7-17) mg/dL Creatinine (0.52-1.04) mg/dL Estimated GFR ML/MIN Glucose (74-106) mg/dL Lactic Acid 1.5 (0.4-2.0) Calcium (8.4-10.2) mg/dL Total Bilirubin (0.2-1.3) mg/dL AST (14-36) U/L ALT (0-35) U/L Alkaline Phosphatase (38-126) U/L Troponin I 0.019 (0.000-0.034) ng/mL Serum Total Protein (6.3-8.2) g/dL Albumin (3.5-5.0) g/dL Amylase (30-110) U/L Lipase (23-300) U/L Urine Color (Yellow) Urine Appearance (Clear) Urine pH (4.6-8.0) Ur Specific [place] (1.005-1.030) Urine Protein (Negative) Urine Glucose (UA) (Negative) mg/dL Urine Ketones (Negative) Urine Blood (Negative) Urine Nitrite (Negative) Urine Bilirubin (Negative) Urine Urobilinogen (0.2) mg/dL Ur Leukocyte Esterase (Negative) U Hyaline Cast (Auto) (0-2) /LPF Urine Microscopic RBC (0-5) /HPF Urine Microscopic WBC (0-5) /HPF Ur Epithelial Cells (None Seen) /HPF Urine Bacteria (None Seen) /HPF Urine Culture Reflexed (NO) Influenza Type A Ag (NEGATIVE) Influenza Type B Ag (NEGATIVE) RSV (PCR) (NEGATIVE) SARS-CoV-2 (PCR) (NEGATIVE) 12/25/22 12/25/22 Range/Units 14:45 19:05 WBC (4.0-10.5) x10^3/uL RBC (4.1-5.4) x10^6/uL Hgb (12.0-16.0) g/dL Hct (35-47) % MCV (78-100) fL MCH (26-32) pg MCHC (32-36) g/dL RDW (11.5-14.0) % Plt Count (150-450) x10^3/uL MPV (7.5-11.0) fL Gran % (36.0-66.0) % Immature Gran % (Auto) (0.00-0.4) % Nucleat RBC Rel Count (0.00-0.1) % Eos # (Auto) (0-0.5) x10^3/uL Immature Gran # (Auto) (0.00-0.03) x10^3u/L Absolute Lymphs (auto) (1.0-4.6) x10^3/uL Absolute Monos (auto) (0.0-1.3) x10^3/uL Absolute Nucleated RBC (0.00-0.01) x10^3u/L Lymphocytes % (24.0-44.0) % Monocytes % (0.0-12.0) % Eosinophils % (0.00-5.0) % Basophils % (0.0-0.4) % Absolute Granulocytes (1.4-6.9) x10^3/uL Basophils # (0-0.4) x10^3/uL PT (9.4-12.5) SECONDS INR (0.8-3.0) Sodium (137-145) mmol/L Potassium (3.5-5.1) mmol/L Chloride (98-107) mmol/L Carbon Dioxide (22-30) mmol/L Anion Gap (5-15) MEQ/L BUN (7-17) mg/dL Creatinine (0.52-1.04) mg/dL Estimated GFR ML/MIN Glucose (74-106) mg/dL Lactic Acid (0.4-2.0) Calcium (8.4-10.2) mg/dL Total Bilirubin (0.2-1.3) mg/dL AST (14-36) U/L ALT (0-35) U/L Alkaline Phosphatase (38-126) U/L Troponin I 0.017 (0.000-0.034) ng/mL Serum Total Protein (6.3-8.2) g/dL Albumin (3.5-5.0) g/dL Amylase (30-110) U/L Lipase (23-300) U/L Urine Color (Yellow) Urine Appearance (Clear) Urine pH (4.6-8.0) Ur Specific [place] (1.005-1.030) Urine Protein (Negative) Urine Glucose (UA) (Negative) mg/dL Urine Ketones (Negative) Urine Blood (Negative) Urine Nitrite (Negative) Urine Bilirubin (Negative) Urine Urobilinogen (0.2) mg/dL Ur Leukocyte Esterase (Negative) U Hyaline Cast (Auto) (0-2) /LPF Urine Microscopic RBC (0-5) /HPF Urine Microscopic WBC (0-5) /HPF Ur Epithelial Cells (None Seen) /HPF Urine Bacteria (None Seen) /HPF Urine Culture Reflexed (NO) Influenza Type A Ag NEGATIVE (NEGATIVE) Influenza Type B Ag NEGATIVE (NEGATIVE) RSV (PCR) NEGATIVE (NEGATIVE) SARS-CoV-2 (PCR) NEGATIVE (NEGATIVE) - Radiology Impressions Radiology Exams & Impressions: Radiology Procedures Category Date Time Status ABDOMEN AND PELVIS W CONTRAST [CT] Stat Exams 12/25/22 14:18 Completed CHEST 1 VIEW (PORTABLE) Stat Exams 12/25/22 15:13 Completed Assessment/Plan (1) Abdominal pain Current Visit: Yes Status: Acute Code(s): R10.9 - UNSPECIFIED ABDOMINAL PAIN (2) Elevated lipase Current Visit: Yes Status: Acute Code(s): R74.8 - ABNORMAL LEVELS OF OTHER SERUM ENZYMES (3) Leukocytosis Current Visit: Yes Status: Acute Assessment & Plan: ASSESSMENT #Gastroenteritis #Abdominal pain #Diverticulosis #Leukocytosis #Milldly elevated lipase #RLS #Nicotine dependence PLAN -Symptom management -IVFs -Follow lipase -Follow abd exam -Nicotine patch -Resume home meds PPX: Lovenox Entire encounter performed via telemedicine Code(s): D72.829 - ELEVATED WHITE BLOOD CELL COUNT, UNSPECIFIED Telemedicine Encounter - Telemedicine Encounter Telemedicine Encounter: The entirety of this encounter was performed via Telemedicine"
[2022-12-25] MEDS ORDERED: MORPHINE SULFATE 2 MG INJ IV PRN (20:20)
[2022-12-25] MEDS ORDERED: Lactated Ringers 1,000 ML IV SCH (20:30)
[2022-12-25] MEDS ORDERED: NEURONTIN ONE (20:34)
[2022-12-25] MEDS: Pepcid 20 MG VIAL IV SCH (20:39)
[2022-12-25] MEDS ORDERED: Mirapex 0.5 MG Tablet PO SCH (22:00)
[2022-12-25] MEDS ORDERED: Neurontin PO SCH (22:00)
[2022-12-25] MEDS: NORCO 5/325 MG PO PRN (22:25)
[2022-12-25 23:47] VITALS: RESP 16
[2022-12-26] MEDS: NORCO 5/325 MG PO PRN ×2 (04:22→10:45)
[2022-12-26 04:42] LABS: Absolute Neutrophil Ct (ANC) 5.65 x10^3/uL (1.4-6.9); BASOPHIL % 0.5 % (0.0-0.4); Basophil (Absolute #) 0.05 x10^3/uL (0-0.4); Eosinophil % 0.6 % (0.00-5.0); Eosinophil (Absolute #) 0.06 x10^3/uL (0-0.5); Hematocrit 39.3 % (35-47); Hemoglobin 12.7 g/dL (12.0-16.0); IMMATURE GRAN # 0.03 x10^3u/L (0.00-0.03); IMMATURE GRAN % 0.3 % (0.00-0.4); Lymphocyte (Absolute #) 3.35 x10^3/uL (1.0-4.6); Mean Cell Volume 83.4 fL (78-100); Mean Corpuscular Hgb Concent. 32.3 g/dL (32-36); Mean Platelet Volume 9.2 fL (7.5-11.0); Monocyte (Absolute #) 0.71 x10^3/uL (0.0-1.3); Monocytes % 7.2 % (0.0-12.0); Neutrophil % 57.4 % (36.0-66.0); Platelet Count 268 x10^3/uL (150-450); Red Blood Count 4.71 x10^6/uL (4.1-5.4); Red Cell Distribution Width 14.6 % (11.5-14.0); White Blood Count 9.9 x10^3/uL (4.0-10.5)
[2022-12-26 05:30] LABS: ALBUMIN 3.3 g/dL (3.5-5.0); ALKALINE PHOSPHATASE 64 U/L (38-126); ANION GAP 7.4 MEQ/L (5-15); BLOOD UREA NITROGEN 16 mg/dL (7-17); CHLORIDE 100 mmol/L (98-107); Calcium 7.9 mg/dL (8.4-10.2); Carbon Dioxide 30 mmol/L (22-30); Creatinine 1 0.75 mg/dL (0.52-1.04); EST GLOMERULAR FILTRATION RATE > 60.0 ML/MIN; Glucose 90 mg/dL (74-106); LIPASE 273 U/L (23-300); Potassium 3.1 mmol/L (3.5-5.1); SGOT/AST 26 U/L (14-36); SGPT/ALT 26 U/L (0-35); SODIUM 134 mmol/L (137-145); Total Protein 6.2 g/dL (6.3-8.2)
[2022-12-26] MEDS: Klor Con PO SCH ×4 (09:07→13:16)
[2022-12-26] MEDS: Pepcid 20 MG VIAL IV SCH (09:09)
[2022-12-26] MEDS ORDERED: ENOXAPARIN SODIUM SQ SCH (10:00)
[2022-12-26 12:10] VITALS: BP 133/67; PULSE 63; TEMP 98; O2SAT 98
--- NOTE | 2022-12-26 12:24 | PCM.DS ---
Discharge Summary Date of Admission: 12/25/22 18:15 Date of Discharge: 12/26/22 Admitting Physician: YELENA MERIDA MD Primary Care Provider: DUARTE BURTON Allergies Allergies No Known Drug Allergies Allergy (Verified 09/20/21 01:46) Hospital Summary - Hospital Course Hospital Course: This is a 62-year-old female admitted to the hospital for treatment of abdominal pain. She has past medical history of diverticulosis, restless leg syndrome. She reported 1 day of headache, nausea, vomiting, diarrhea and abdominal pain. Pain is in the lower abdominal she describes as intermittent, and sharp associated w/ vomiting and diarrhea. On arrival she was afebrile, heart rate 80, respiratory rate 24, blood pressure 126/90. Labs significant for WBC of 15, hemoglobin 14, platelets 354, sodium 133, potassium 3.1, CO2 31, creatinine 0.77, lipase 737, UA negative for infection, flu, RSV, COVID all negative. CT abdomen pelvis showed diverticulosis but was otherwise unremarkable. Chest x- ray showed mild cardiomegaly and mild pulmonary vascular congestion. In the ER she was given fentanyl, Dilaudid, Zofran, IV fluids. She reports symptoms have improved. Patient noted with improvement overnight. No longer with abdominal pain, nausea, or vomiting. Labs/vitals wnl. Potassium replaced and WNL. Urine culture with no growth. Symptoms most likely related to viral gastroenteritis. Patient medically stable and ready for discharge. -New Diagnoses: leukocytosis/N/V/ elevated lipase/. -New Medications: zofran/ potassium chloride x 5 days/ nicotine patch -Medications Discontinued: none -Follow up: pcp -Results pending: final urine culture -Outpatient testing to order: Bmp in 3 days -Latest Assessment and Plan: (1) Abdominal pain Current Visit: Yes Status: Acute Code(s): R10.9 - UNSPECIFIED ABDOMINAL PAIN (2) Elevated lipase Current Visit: Yes Status: Acute Code(s): R74.8 - ABNORMAL LEVELS OF OTHER SERUM ENZYMES (3) Leukocytosis Current Visit: Yes Status: Acute Assessment & Plan: ASSESSMENT #Gastroenteritis #Abdominal pain #Diverticulosis #Leukocytosis #Milldly elevated lipase #RLS #Nicotine dependence PLAN -Symptom management -IVFs -Follow lipase -Follow abd exam -Nicotine patch -Resume home meds I spent 45 minutes [id number] with the patient on the day of discharge performing discharge exam, discussing hospital stay and discharge instructions with patient & caregivers, preparation of discharge records, prescriptions & referral forms and addressing any questions/concerns the patient had as document ed above. - Vitals & Intake/Output Vital Signs: Vital Signs Temperature 98.0 F 12/26/22 12:00 Pulse Rate 63 12/26/22 12:00 Respiratory Rate 16 12/26/22 12:00 Blood Pressure 133/67 12/26/22 12:00 O2 Sat by Pulse Oximetry 98 12/26/22 12:00 Intake & Output: Intake & Output 12/24/22 12/25/22 12/26/22 12/27/22 11:59 11:59 11:59 11:59 Intake Total 1129 Balance 1129 Weight 91.7 kg - Lab Result Diagrams: 12/26/22 04:30 12/26/22 08:23 Lab Results-Last 24 Hrs: Lab Results-Last 24 Hours 12/25/22 12/25/22 12/25/22 Range/Units 13:48 13:48 13:48 WBC 15.8 H (4.0-10.5) x10^3/uL RBC 5.62 H (4.1-5.4) x10^6/uL Hgb 14.8 (12.0-16.0) g/dL Hct 45.0 (35-47) % MCV 80.1 (78-100) fL MCH 26.3 (26-32) pg MCHC 32.9 (32-36) g/dL RDW 14.6 H (11.5-14.0) % Plt Count 354 (150-450) x10^3/uL MPV 9.9 (7.5-11.0) fL Gran % 82.8 H (36.0-66.0) % Immature Gran % (Auto) 0.4 (0.00-0.4) % Nucleat RBC Rel Count 0.0 (0.00-0.1) % Eos # (Auto) 0 (0-0.5) x10^3/uL Immature Gran # (Auto) 0.07 H (0.00-0.03) x10^3u/L Absolute Lymphs (auto) 1.89 (1.0-4.6) x10^3/uL Absolute Monos (auto) 0.73 (0.0-1.3) x10^3/uL Absolute Nucleated RBC 0.00 (0.00-0.01) x10^3u/L Lymphocytes % 12.0 L (24.0-44.0) % Monocytes % 4.6 (0.0-12.0) % Eosinophils % 0.0 (0.00-5.0) % Basophils % 0.2 (0.0-0.4) % Absolute Granulocytes 13.09 H (1.4-6.9) x10^3/uL Basophils # 0.03 (0-0.4) x10^3/uL PT (9.4-12.5) SECONDS INR (0.8-3.0) Sodium 133 L (137-145) mmol/L Potassium 3.1 L (3.5-5.1) mmol/L Chloride 94 L (98-107) mmol/L Carbon Dioxide 31 H (22-30) mmol/L Anion Gap 11.1 (5-15) MEQ/L BUN 18 H (7-17) mg/dL Creatinine 0.77 (0.52-1.04) mg/dL Estimated GFR > 60.0 ML/MIN Glucose 112 H (74-106) mg/dL Lactic Acid (0.4-2.0) Calcium 8.6 (8.4-10.2) mg/dL Magnesium (1.6-2.3) mg/dL Total Bilirubin 0.40 (0.2-1.3) mg/dL AST 28 (14-36) U/L ALT 30 (0-35) U/L Alkaline Phosphatase 77 (38-126) U/L Troponin I (0.000-0.034) ng/mL Serum Total Protein 7.0 (6.3-8.2) g/dL Albumin 4.0 (3.5-5.0) g/dL Amylase 104 (30-110) U/L Lipase 737 H (23-300) U/L Urine Color Yellow (Yellow) Urine Appearance Clear (Clear) Urine pH 7.0 (4.6-8.0) Ur Specific [place] 1.025 (1.005-1.030) Urine Protein 300 A (Negative) Urine Glucose (UA) Negative (Negative) mg/dL Urine Ketones Trace A (Negative) Urine Blood Trace (Negative) Urine Nitrite Negative (Negative) Urine Bilirubin Negative (Negative) Urine Urobilinogen 1.0 A (0.2) mg/dL Ur Leukocyte Esterase Negative (Negative) U Hyaline Cast (Auto) 3-5 A (0-2) /LPF Urine Microscopic RBC 11-20 A (0-5) /HPF Urine Microscopic WBC 0-2 (0-5) /HPF Ur Epithelial Cells Rare (None Seen) /HPF Urine Bacteria None Seen (None Seen) /HPF Urine Culture Reflexed YES (NO) Influenza Type A Ag (NEGATIVE) Influenza Type B Ag (NEGATIVE) RSV (PCR) (NEGATIVE) SARS-CoV-2 (PCR) (NEGATIVE) 12/25/22 12/25/22 12/25/22 Range/Units 13:48 13:48 14:36 WBC (4.0-10.5) x10^3/uL RBC (4.1-5.4) x10^6/uL Hgb (12.0-16.0) g/dL Hct (35-47) % MCV (78-100) fL MCH (26-32) pg MCHC (32-36) g/dL RDW (11.5-14.0) % Plt Count (150-450) x10^3/uL MPV (7.5-11.0) fL Gran % (36.0-66.0) % Immature Gran % (Auto) (0.00-0.4) % Nucleat RBC Rel Count (0.00-0.1) % Eos # (Auto) (0-0.5) x10^3/uL Immature Gran # (Auto) (0.00-0.03) x10^3u/L Absolute Lymphs (auto) (1.0-4.6) x10^3/uL Absolute Monos (auto) (0.0-1.3) x10^3/uL Absolute Nucleated RBC (0.00-0.01) x10^3u/L Lymphocytes % (24.0-44.0) % Monocytes % (0.0-12.0) % Eosinophils % (0.00-5.0) % Basophils % (0.0-0.4) % Absolute Granulocytes (1.4-6.9) x10^3/uL Basophils # (0-0.4) x10^3/uL PT 11.4 (9.4-12.5) SECONDS INR 1.05 (0.8-3.0) Sodium (137-145) mmol/L Potassium (3.5-5.1) mmol/L Chloride (98-107) mmol/L Carbon Dioxide (22-30) mmol/L Anion Gap (5-15) MEQ/L BUN (7-17) mg/dL Creatinine (0.52-1.04) mg/dL Estimated GFR ML/MIN Glucose (74-106) mg/dL Lactic Acid 1.5 (0.4-2.0) Calcium (8.4-10.2) mg/dL Magnesium (1.6-2.3) mg/dL Total Bilirubin (0.2-1.3) mg/dL AST (14-36) U/L ALT (0-35) U/L Alkaline Phosphatase (38-126) U/L Troponin I 0.019 (0.000-0.034) ng/mL Serum Total Protein (6.3-8.2) g/dL Albumin (3.5-5.0) g/dL Amylase (30-110) U/L Lipase (23-300) U/L Urine Color (Yellow) Urine Appearance (Clear) Urine pH (4.6-8.0) Ur Specific [place] (1.005-1.030) Urine Protein (Negative) Urine Glucose (UA) (Negative) mg/dL Urine Ketones (Negative) Urine Blood (Negative) Urine Nitrite (Negative) Urine Bilirubin (Negative) Urine Urobilinogen (0.2) mg/dL Ur Leukocyte Esterase (Negative) U Hyaline Cast (Auto) (0-2) /LPF Urine Microscopic RBC (0-5) /HPF Urine Microscopic WBC (0-5) /HPF Ur Epithelial Cells (None Seen) /HPF Urine Bacteria (None Seen) /HPF Urine Culture Reflexed (NO) Influenza Type A Ag (NEGATIVE) Influenza Type B Ag (NEGATIVE) RSV (PCR) (NEGATIVE) SARS-CoV-2 (PCR) (NEGATIVE) 12/25/22 12/25/22 12/25/22 Range/Units 14:45 19:05 22:20 WBC (4.0-10.5) x10^3/uL RBC (4.1-5.4) x10^6/uL Hgb (12.0-16.0) g/dL Hct (35-47) % MCV (78-100) fL MCH (26-32) pg MCHC (32-36) g/dL RDW (11.5-14.0) % Plt Count (150-450) x10^3/uL MPV (7.5-11.0) fL Gran % (36.0-66.0) % Immature Gran % (Auto) (0.00-0.4) % Nucleat RBC Rel Count (0.00-0.1) % Eos # (Auto) (0-0.5) x10^3/uL Immature Gran # (Auto) (0.00-0.03) x10^3u/L Absolute Lymphs (auto) (1.0-4.6) x10^3/uL Absolute Monos (auto) (0.0-1.3) x10^3/uL Absolute Nucleated RBC (0.00-0.01) x10^3u/L Lymphocytes % (24.0-44.0) % Monocytes % (0.0-12.0) % Eosinophils % (0.00-5.0) % Basophils % (0.0-0.4) % Absolute Granulocytes (1.4-6.9) x10^3/uL Basophils # (0-0.4) x10^3/uL PT (9.4-12.5) SECONDS INR (0.8-3.0) Sodium (137-145) mmol/L Potassium (3.5-5.1) mmol/L Chloride (98-107) mmol/L Carbon Dioxide (22-30) mmol/L Anion Gap (5-15) MEQ/L BUN (7-17) mg/dL Creatinine (0.52-1.04) mg/dL Estimated GFR ML/MIN Glucose (74-106) mg/dL Lactic Acid (0.4-2.0) Calcium (8.4-10.2) mg/dL Magnesium (1.6-2.3) mg/dL Total Bilirubin (0.2-1.3) mg/dL AST (14-36) U/L ALT (0-35) U/L Alkaline Phosphatase (38-126) U/L Troponin I 0.017 0.016 (0.000-0.034) ng/mL Serum Total Protein (6.3-8.2) g/dL Albumin (3.5-5.0) g/dL Amylase (30-110) U/L Lipase (23-300) U/L Urine Color (Yellow) Urine Appearance (Clear) Urine pH (4.6-8.0) Ur Specific [place] (1.005-1.030) Urine Protein (Negative) Urine Glucose (UA) (Negative) mg/dL Urine Ketones (Negative) Urine Blood (Negative) Urine Nitrite (Negative) Urine Bilirubin (Negative) Urine Urobilinogen (0.2) mg/dL Ur Leukocyte Esterase (Negative) U Hyaline Cast (Auto) (0-2) /LPF Urine Microscopic RBC (0-5) /HPF Urine Microscopic WBC (0-5) /HPF Ur Epithelial Cells (None Seen) /HPF Urine Bacteria (None Seen) /HPF Urine Culture Reflexed (NO) Influenza Type A Ag NEGATIVE (NEGATIVE) Influenza Type B Ag NEGATIVE (NEGATIVE) RSV (PCR) NEGATIVE (NEGATIVE) SARS-CoV-2 (PCR) NEGATIVE (NEGATIVE) 12/26/22 12/26/22 12/26/22 Range/Units 04:30 04:30 04:30 WBC 9.9 (4.0-10.5) x10^3/uL RBC 4.71 (4.1-5.4) x10^6/uL Hgb 12.7 (12.0-16.0) g/dL Hct 39.3 (35-47) % MCV 83.4 (78-100) fL MCH 27.0 (26-32) pg MCHC 32.3 (32-36) g/dL RDW 14.6 H (11.5-14.0) % Plt Count 268 (150-450) x10^3/uL MPV 9.2 (7.5-11.0) fL Gran % 57.4 (36.0-66.0) % Immature Gran % (Auto) 0.3 (0.00-0.4) % Nucleat RBC Rel Count 0.0 (0.00-0.1) % Eos # (Auto) 0.06 (0-0.5) x10^3/uL Immature Gran # (Auto) 0.03 (0.00-0.03) x10^3u/L Absolute Lymphs (auto) 3.35 (1.0-4.6) x10^3/uL Absolute Monos (auto) 0.71 (0.0-1.3) x10^3/uL Absolute Nucleated RBC 0.00 (0.00-0.01) x10^3u/L Lymphocytes % 34.0 (24.0-44.0) % Monocytes % 7.2 (0.0-12.0) % Eosinophils % 0.6 (0.00-5.0) % Basophils % 0.5 (0.0-0.4) % Absolute Granulocytes 5.65 (1.4-6.9) x10^3/uL Basophils # 0.05 (0-0.4) x10^3/uL PT (9.4-12.5) SECONDS INR (0.8-3.0) Sodium 134 L (137-145) mmol/L Potassium 3.1 L (3.5-5.1) mmol/L Chloride 100 (98-107) mmol/L Carbon Dioxide 30 (22-30) mmol/L Anion Gap 7.4 (5-15) MEQ/L BUN 16 (7-17) mg/dL Creatinine 0.75 (0.52-1.04) mg/dL Estimated GFR > 60.0 ML/MIN Glucose 90 (74-106) mg/dL Lactic Acid (0.4-2.0) Calcium 7.9 L (8.4-10.2) mg/dL Magnesium 1.8 (1.6-2.3) mg/dL Total Bilirubin 0.40 (0.2-1.3) mg/dL AST 26 (14-36) U/L ALT 26 (0-35) U/L Alkaline Phosphatase 64 (38-126) U/L Troponin I (0.000-0.034) ng/mL Serum Total Protein 6.2 L (6.3-8.2) g/dL Albumin 3.3 L (3.5-5.0) g/dL Amylase (30-110) U/L Lipase 273 (23-300) U/L Urine Color (Yellow) Urine Appearance (Clear) Urine pH (4.6-8.0) Ur Specific [place] (1.005-1.030) Urine Protein (Negative) Urine Glucose (UA) (Negative) mg/dL Urine Ketones (Negative) Urine Blood (Negative) Urine Nitrite (Negative) Urine Bilirubin (Negative) Urine Urobilinogen (0.2) mg/dL Ur Leukocyte Esterase (Negative) U Hyaline Cast (Auto) (0-2) /LPF Urine Microscopic RBC (0-5) /HPF Urine Microscopic WBC (0-5) /HPF Ur Epithelial Cells (None Seen) /HPF Urine Bacteria (None Seen) /HPF Urine Culture Reflexed (NO) Influenza Type A Ag (NEGATIVE) Influenza Type B Ag (NEGATIVE) RSV (PCR) (NEGATIVE) SARS-CoV-2 (PCR) (NEGATIVE) 12/26/22 Range/Units 08:23 WBC (4.0-10.5) x10^3/uL RBC (4.1-5.4) x10^6/uL Hgb (12.0-16.0) g/dL Hct (35-47) % MCV (78-100) fL MCH (26-32) pg MCHC (32-36) g/dL RDW (11.5-14.0) % Plt Count (150-450) x10^3/uL MPV (7.5-11.0) fL Gran % (36.0-66.0) % Immature Gran % (Auto) (0.00-0.4) % Nucleat RBC Rel Count (0.00-0.1) % Eos # (Auto) (0-0.5) x10^3/uL Immature Gran # (Auto) (0.00-0.03) x10^3u/L Absolute Lymphs (auto) (1.0-4.6) x10^3/uL Absolute Monos (auto) (0.0-1.3) x10^3/uL Absolute Nucleated RBC (0.00-0.01) x10^3u/L Lymphocytes % (24.0-44.0) % Monocytes % (0.0-12.0) % Eosinophils % (0.00-5.0) % Basophils % (0.0-0.4) % Absolute Granulocytes (1.4-6.9) x10^3/uL Basophils # (0-0.4) x10^3/uL PT (9.4-12.5) SECONDS INR (0.8-3.0) Sodium (137-145) mmol/L Potassium 3.5 (3.5-5.1) mmol/L Chloride (98-107) mmol/L Carbon Dioxide (22-30) mmol/L Anion Gap (5-15) MEQ/L BUN (7-17) mg/dL Creatinine (0.52-1.04) mg/dL Estimated GFR ML/MIN Glucose (74-106) mg/dL Lactic Acid (0.4-2.0) Calcium (8.4-10.2) mg/dL Magnesium (1.6-2.3) mg/dL Total Bilirubin (0.2-1.3) mg/dL AST (14-36) U/L ALT (0-35) U/L Alkaline Phosphatase (38-126) U/L Troponin I (0.000-0.034) ng/mL Serum Total Protein (6.3-8.2) g/dL Albumin (3.5-5.0) g/dL Amylase (30-110) U/L Lipase (23-300) U/L Urine Color (Yellow) Urine Appearance (Clear) Urine pH (4.6-8.0) Ur Specific [place] (1.005-1.030) Urine Protein (Negative) Urine Glucose (UA) (Negative) mg/dL Urine Ketones (Negative) Urine Blood (Negative) Urine Nitrite (Negative) Urine Bilirubin (Negative) Urine Urobilinogen (0.2) mg/dL Ur Leukocyte Esterase (Negative) U Hyaline Cast (Auto) (0-2) /LPF Urine Microscopic RBC (0-5) /HPF Urine Microscopic WBC (0-5) /HPF Ur Epithelial Cells (None Seen) /HPF Urine Bacteria (None Seen) /HPF Urine Culture Reflexed (NO) Influenza Type A Ag (NEGATIVE) Influenza Type B Ag (NEGATIVE) RSV (PCR) (NEGATIVE) SARS-CoV-2 (PCR) (NEGATIVE) Micro Results-Entire Visit: Microbiology 12/25/22 13:48 Urine Culture - Preliminary Clean Catch Midstream NO GROWTH TO DATE - Radiology Exams Ordered Rad Exams-Entire Visit: Radiology Procedures Category Date Time Status ABDOMEN AND PELVIS W CONTRAST [CT] Stat Exams 12/25/22 14:18 Completed CHEST 1 VIEW (PORTABLE) Stat Exams 12/25/22 15:13 Completed - Procedures and Test Procedures and Tests throughout Hospitalization: Therapy Orders & Screens 12/25/22 18:14 Respiratory Therapy Consult ONCE Comment: Reason For Exam: 12/25/22 20:16 Respiratory Therapy Assessment DAILY Comment: Diagnosis: Diverticulitis Discharge Exam General Appearance: no apparent distress Neurologic Exam: alert, oriented x 3, cooperative Eye Exam: PERRL Ears, Nose, Throat Exam: normal ENT inspection Neck Exam: normal inspection Respiratory Exam: normal breath sounds, lungs clear Cardiovascular Exam: regular rate/rhythm, normal heart sounds Gastrointestinal/Abdomen Exam: soft, normal bowel sounds Pelvic Exam: deferred Rectal Exam: deferred Extremity Exam: normal inspection Skin Exam: normal color Final Diagnosis/Problem List - Final Discharge Diagnosis/Problem (1) Gastroenteritis Current Visit: Yes Status: Resolved Code(s): K52.9 - NONINFECTIVE GASTROE NTERITIS AND COLITIS, UNSPECIFIED (2) Leukocytosis Current Visit: Yes Status: Resolved Code(s): D72.829 - ELEVATED WHITE BLOOD CELL COUNT, UNSPECIFIED (3) Hypokalemia Current Visit: Yes Status: Resolved Code(s): E87.6 - HYPOKALEMIA (4) Abdominal pain Current Visit: Yes Status: Resolved Code(s): R10.9 - UNSPECIFIED ABDOMINAL PAIN (5) Diverticulitis Current Visit: Yes Status: Chronic Code(s): K57.92 - DVTRCLI OF INTEST, PART UNSP, W/O PERF OR ABSCESS W/O BLEED (6) Elevated lipase Current Visit: Yes Status: Resolved Code(s): R74.8 - ABNORMAL LEVELS OF OTHER SERUM ENZYMES - Discharge Condition: Stable Prescriptions: New Potassium Chloride Tab* [Klor Con] 20 meq PO DAILY 5 Days #5 tablet NS MDD 1 Nicotine 21 mg [Nicoderm CQ 21 MG] 1 each TD DAILY 42 Days #42 patch Ondansetron ODT 4 MG [Zofran Odt 4 mg] 4 mg PO Q6H PRN PRN #10 tablet PRN Reason: Nausea Continue Gabapentin [Neurontin] 300 mg PO HS Pramipexole Di-HCl [Mirapex] 1 mg PO HS Outpatient Orders: BMP Time Frame: 3 Days, Facility: [facility], Location: LABORATORY Follow up with: DUARTE BURTON, MANAGER HEMATOLOGY [Primary Care Provider] -
[2022-12-26] MEDS ORDERED: NEURONTIN PO SCH (22:00)
== END 2022-12-26 13:39 | disposition home or self-care (01) ==
LOC: ED 13:14 → MED SURG 18:15
PROVIDERS: ADMIT Internal Medicine; ATTEND Internal Medicine
DX: K52.9 Noninfective gastroenteritis and colitis, unspecified (principal); D72.829 Elevated white blood cell count, unspecified; K57.92 Diverticulitis of intestine, part unspecified, without perforation or abscess without bleeding; R10.9 Unspecified abdominal pain; R74.8 Abnormal levels of other serum enzymes; E87.6 Hypokalemia; I10 Essential (primary) hypertension; E11.9 Type 2 diabetes mellitus without complications; E78.5 Hyperlipidemia, unspecified; Z72.0 Tobacco use; Z79.899 Other long term (current) drug therapy; Z20.828 Contact with and (suspected) exposure to other viral communicable diseases
CPT/HCPCS: 0241U; 36000; 36415; 71045; 74177; 80053; 81001; 82150; 83605; 83690; 83735; 84132; 84484; 85025; 85610; 87086; 93005; 94760; 96360; 96361; 96374; 96375; 99285; G0378; J1170; J1650; J2405; J3010; Q3014; A9270-GY